=== PATIENT | female | born 1940 | race Caucasian/White ===

== ENCOUNTER 2020-11-19 18:59 | Inpatient (IN) | payer MEDICARE ==
[~2020-11-19] VITALS: Ht 162.6 cm; Wt 116.2 kg
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
[2020-11-19] MEDS ORDERED: PROMETHAZINE 25 MG/ML, 1ML ONE (19:14)
[2020-11-19] MEDS ORDERED: METO50TA82 PO (19:25)
[2020-11-19] MEDS ORDERED: ASPI-963 PO (19:25)
[2020-11-19] MEDS ORDERED: INSULIN (19:25)
[2020-11-19] MEDS ORDERED: CYAN2500 PO (19:25)
[2020-11-19] MEDS ORDERED: FURO20TA3 PO (19:25)
[2020-11-19] MEDS ORDERED: LEVO25TA2 PO (19:25)
[2020-11-19] MEDS ORDERED: OMEP-110 PO (19:25)
[2020-11-19] MEDS ORDERED: ERGO500017 PO (19:25)
[2020-11-19] MEDS ORDERED: ATOR20TA37 PO (19:25)
[2020-11-19] MEDS ORDERED: FERR324T5 PO (19:25)
[2020-11-19] MEDS ORDERED: IRBE75TA6 PO (19:25)
[2020-11-19] MEDS ORDERED: ASPIRIN 81 MG TABLET CHEW ONE (19:26)
[2020-11-19] MEDS ORDERED: ACETAMINOPHEN 500 MG TABLET ONE (19:26)
[2020-11-19] MEDS ORDERED: SODIUM CHLORIDE FLUSH 10ML SYR IVF ONE (19:30)
[2020-11-19] MEDS ORDERED: SODIUM CHLORIDE 0.9% 1,000ML IVBOLUS ONE (19:30)
[2020-11-19] MEDS ORDERED: ACETAMINOPHEN 500 MG TABLET PO ONE (19:30)
[2020-11-19] MEDS ORDERED: ASPIRIN 81 MG TABLET CHEW PO ONE (19:30)
[2020-11-19 19:37] LABS: BASOPHILS % (AUTO) 1 % (0-1); EOSINOPHILS % (AUTO) 4 % (1-7); LYMPHOCYTES % (AUTO) 17 % (22-44); MEAN CORPUSCULAR HEMOGLOBIN 32.4 pg (27.0-34.8); MEAN CORPUSCULAR HGB CONC 32.4 g/dL (32.4-35.8); MEAN PLATELET VOLUME 9.2 fL (7.4-10.4); MONOCYTES % (AUTO) 7 % (2-9); NEUTROPHILS % (AUTO) 72 % (42-75); PLATELET COUNT 163 x10^3/uL (130-400); RED BLOOD COUNT 2.74 x10^6/uL (3.82-5.3); RED CELL DISTRIBUTION WIDTH 14.5 % (9.6-15.2)
[2020-11-19 19:43] LABS: ALANINE AMINOTRANSFERASE 35 U/L (12-78); ALBUMIN 2.6 g/dL (3.4-5.0); ANION GAP 8 mmol/L (5-15); CALCIUM 8.1 mg/dL (8.5-10.1); CHLORIDE 113 mmol/L (98-107)
[2020-11-19 19:47] LABS: ALKALINE PHOSPHATASE 98 U/L (45-117); BILIRUBIN,TOTAL 0.3 mg/dL (0.2-1.0); TROPONIN I 0.021 ng/mL (0.000-0.045)
[2020-11-19] MEDS ORDERED: PROMETHAZINE 25 MG/ML, 1ML IM ONE (20:30)
[2020-11-19 20:51] LABS: FREE T4 (FREE THYROXINE) 1.03 ng/dL (0.76-1.46)
--- NOTE | 2020-11-19 21:10 | NUR ---
PT RETURNED FROM CT
--- NOTE | 2020-11-19 21:43 | NUR ---
Monitor check: Pt o2 sat 80% RA, airway opened o2 up to 3L NC; sats up to 95%. Informed primary RN; Precious.
[2020-11-19] MEDS: SODIUM CHLORIDE FLUSH 10ML SYR IVF SCH (23:30)
[2020-11-19] MEDS ORDERED: ONDANSETRON ODT 4 MG PO PRN (23:30)
[2020-11-19] MEDS ORDERED: BISACODYL 10 MG SUPP PR PRN (23:30)
[2020-11-19] MEDS ORDERED: METOPROLOL TARTRATE 50 MG TAB PO SCH (23:30)
--- NOTE | 2020-11-19 23:33 | NUR ---
Pt to be admitted to [facility], room 501. Report called to JOIE.
[2020-11-20 00:10] VITALS: BP 174/50
[2020-11-20] MEDS: ERGOCALCIFEROL 50,000 UNIT CAPSULE PO SCH (00:55)
[2020-11-20] MEDS: FERROUS SULFATE 325 MG TABLET PO SCH ×3 (00:55→20:48)
[2020-11-20] MEDS: ATORVASTATIN 20 MG TABLET PO SCH ×2 (00:55→20:48)
[2020-11-20] MEDS: INSULIN LISPRO 100 UNITS/ML, PEN SQ-INSULIN SCH ×5 (01:09→20:49)
[2020-11-20] MEDS: LEVOTHYROXINE 25 MCG TABLET PO SCH (05:06)
[2020-11-20] MEDS ORDERED: LABETALOL 5MG/ML, 20ML ONE (05:36)
[2020-11-20] MEDS ORDERED: ETOMIDATE 20 MG/10 ML ONE (05:49)
[2020-11-20] MEDS ORDERED: SUCCINYLCHOLINE 20 MG/ML, 10ML ONE (05:49)
[2020-11-20] MEDS ORDERED: CODE BLUE RESPONSE XX ONE (05:49)
[2020-11-20] MEDS ORDERED: PROPOFOL 100 ML IV ONE (05:49)
[2020-11-20] MEDS ORDERED: NOREPINEPHRINE 8 MG in SODIUM CHLORIDE 0.9% 242 ML IV PRN (06:00)
[2020-11-20 06:26] LABS: BASOPHILS % (AUTO) 1 % (0-1); EOSINOPHILS % (AUTO) 2 % (1-7); LYMPHOCYTES % (AUTO) 33 % (22-44); MEAN CORPUSCULAR HEMOGLOBIN 32.3 pg (27.0-34.8); MEAN CORPUSCULAR HGB CONC 31.9 g/dL (32.4-35.8); MEAN PLATELET VOLUME 9.4 fL (7.4-10.4); MONOCYTES % (AUTO) 7 % (2-9); NEUTROPHILS % (AUTO) 57 % (42-75); PLATELET COUNT 192 x10^3/uL (130-400)
[2020-11-20] MEDS ORDERED: PROPOFOL 100 ML IV PRN ×2 (06:30→08:00)
[2020-11-20 06:48] LABS: ANION GAP 11 mmol/L (5-15); CALCIUM 7.9 mg/dL (8.5-10.1); CHLORIDE 110 mmol/L (98-107)
[2020-11-20 06:53] LABS: CREATININE 4.07 mg/dL (0.55-1.02); TROPONIN I 0.072 ng/mL (0.000-0.045)
[2020-11-20] MEDS ORDERED: FUROSEMIDE 20 MG/2 ML IV SCH (07:30)
[2020-11-20] MEDS ORDERED: PHARMACY MAY ADJ FOR RENAL FX MC SCH (08:00)
[2020-11-20] MEDS ORDERED: LIDOCAINE-MPF 1%, 2ML ENDO PRN (08:00)
[2020-11-20] MEDS ORDERED: FENTANYL PF 100 MCG/2ML IVPush PRN (08:00)
[2020-11-20] MEDS: SODIUM CHLORIDE FLUSH 10ML SYR IVF SCH ×2 (09:00→20:49)
[2020-11-20] MEDS ORDERED: DIPHENOXYLATE/ATROPINE TABLET PO ONE (09:15)
[2020-11-20] MEDS: HEPARIN 5,000 UNITS/ML, 1ML SQ SCH ×2 (09:24→17:13)
[2020-11-20] MEDS: OMEPRAZOLE 20 MG CAPSULE.DR PO SCH (09:42)
[2020-11-20] MEDS: SENNA/DOCUSATE TABLET PO SCH (09:42)
[2020-11-20] MEDS: CYANOCOBALAMIN 1,000 MCG TABLET PO SCH (09:42)
[2020-11-20] MEDS: ASPIRIN 81 MG TABLET EC PO SCH (09:42)
[2020-11-20] MEDS ORDERED: ATROPINE SYRINGE 0.1 MG/ML, 10ML ONE (10:38)
[2020-11-20] MEDS ORDERED: SODIUM BICARB 8.4%, 50ML SYRINGE ONE (10:38)
[2020-11-20 12:27] LABS: TROPONIN I 0.564 ng/mL (0.000-0.045)
[2020-11-20] MEDS: FUROSEMIDE 20 MG/2 ML IV SCH (17:13)
[2020-11-20] MEDS: ACETAMINOPHEN 325 MG TABLET PO PRN (19:25)
[2020-11-20] MEDS: INSULIN GLARGINE 100 UNITS/ML, PEN SQ-INSULIN SCH (20:48)
[2020-11-21] MEDS: HEPARIN 5,000 UNITS/ML, 1ML SQ SCH ×3 (00:23→15:39)
[2020-11-21] MEDS: LEVOTHYROXINE 25 MCG TABLET PO SCH (05:41)
[2020-11-21 07:13] LABS: BASOPHILS % (AUTO) 1 % (0-1); EOSINOPHILS % (AUTO) 3 % (1-7); LYMPHOCYTES % (AUTO) 18 % (22-44); MEAN CORPUSCULAR HEMOGLOBIN 32.6 pg (27.0-34.8); MEAN CORPUSCULAR HGB CONC 32.7 g/dL (32.4-35.8); MEAN PLATELET VOLUME 9.1 fL (7.4-10.4); MONOCYTES % (AUTO) 8 % (2-9); NEUTROPHILS % (AUTO) 70 % (42-75); PLATELET COUNT 152 x10^3/uL (130-400); RED BLOOD COUNT 2.35 x10^6/uL (3.82-5.3); RED CELL DISTRIBUTION WIDTH 14.9 % (9.6-15.2)
[2020-11-21 07:25] LABS: ANION GAP 5 mmol/L (5-15); CHLORIDE 113 mmol/L (98-107)
[2020-11-21 07:29] LABS: TROPONIN I 0.448 ng/mL (0.000-0.045)
[2020-11-21] MEDS: ASPIRIN 81 MG TABLET EC PO SCH (08:39)
[2020-11-21] MEDS: SENNA/DOCUSATE TABLET PO SCH (08:39)
[2020-11-21] MEDS: FUROSEMIDE 20 MG/2 ML IV SCH (08:39)
[2020-11-21] MEDS: ACETAMINOPHEN 325 MG TABLET PO PRN (08:39)
[2020-11-21] MEDS: FERROUS SULFATE 325 MG TABLET PO SCH ×2 (08:40→21:22)
[2020-11-21] MEDS: OMEPRAZOLE 20 MG CAPSULE.DR PO SCH (08:40)
[2020-11-21] MEDS: SODIUM CHLORIDE FLUSH 10ML SYR IVF SCH ×2 (08:41→21:23)
[2020-11-21] MEDS: INSULIN GLARGINE 100 UNITS/ML, PEN SQ-INSULIN SCH ×2 (08:41→21:22)
[2020-11-21] MEDS: INSULIN LISPRO 100 UNITS/ML, PEN SQ-INSULIN SCH ×4 (08:41→21:22)
[2020-11-21] MEDS: CYANOCOBALAMIN 1,000 MCG TABLET PO SCH (08:43)
[2020-11-21] MEDS: LIDODERM 5% PATCH TD SCH (10:24)
[2020-11-21] MEDS: ISOSORBIDE DINITRATE 10 MG TABLET PO SCH ×3 (10:24→21:22)
[2020-11-21] MEDS: OXYcodone IR 5MG TABLET PO PRN ×2 (13:42→21:34)
[2020-11-21 16:30] VITALS: BP 128/61
[2020-11-21 21:06] VITALS: BP 173/62
[2020-11-21] MEDS: ATORVASTATIN 20 MG TABLET PO SCH (21:22)
[2020-11-21] MEDS: LIDODERM REMOVE PATCH NOTE XX SCH (22:20)
[2020-11-22 00:13] VITALS: BP 148/63
[2020-11-22] MEDS: HEPARIN 5,000 UNITS/ML, 1ML SQ SCH ×3 (00:13→16:48)
[2020-11-22] MEDS: OXYcodone IR 5MG TABLET PO PRN ×4 (02:08→21:32)
[2020-11-22] MEDS: LEVOTHYROXINE 25 MCG TABLET PO SCH (05:49)
[2020-11-22 06:03] LABS: BASOPHILS % (AUTO) 1 % (0-1); EOSINOPHILS % (AUTO) 5 % (1-7); LYMPHOCYTES % (AUTO) 15 % (22-44); MEAN CORPUSCULAR HEMOGLOBIN 32.6 pg (27.0-34.8); MEAN CORPUSCULAR HGB CONC 32.9 g/dL (32.4-35.8); MONOCYTES % (AUTO) 8 % (2-9); NEUTROPHILS % (AUTO) 71 % (42-75); PLATELET COUNT 158 x10^3/uL (130-400); RED BLOOD COUNT 2.54 x10^6/uL (3.82-5.3); RED CELL DISTRIBUTION WIDTH 14.9 % (9.6-15.2)
[2020-11-22 06:07] LABS: ANION GAP 7 mmol/L (5-15); CALCIUM 8.2 mg/dL (8.5-10.1); CHLORIDE 111 mmol/L (98-107)
[2020-11-22 06:09] LABS: CREATININE 4.58 mg/dL (0.55-1.02)
[2020-11-22 06:35] VITALS: BP 158/61
[2020-11-22] MEDS: INSULIN GLARGINE 100 UNITS/ML, PEN SQ-INSULIN SCH ×2 (08:35→21:34)
[2020-11-22] MEDS: INSULIN LISPRO 100 UNITS/ML, PEN SQ-INSULIN SCH ×4 (08:35→21:33)
[2020-11-22] MEDS: OMEPRAZOLE 20 MG CAPSULE.DR PO SCH (08:36)
[2020-11-22] MEDS: SENNA/DOCUSATE TABLET PO SCH (08:36)
[2020-11-22] MEDS: CYANOCOBALAMIN 1,000 MCG TABLET PO SCH (08:36)
[2020-11-22] MEDS: ISOSORBIDE DINITRATE 10 MG TABLET PO SCH ×3 (08:36→21:33)
[2020-11-22] MEDS: ASPIRIN 81 MG TABLET EC PO SCH (08:37)
[2020-11-22] MEDS: SODIUM CHLORIDE FLUSH 10ML SYR IVF SCH ×2 (08:37→21:34)
[2020-11-22] MEDS: FERROUS SULFATE 325 MG TABLET PO SCH ×2 (08:37→21:32)
[2020-11-22] MEDS ORDERED: FUROSEMIDE 40 MG/4 ML IV SCH (09:00)
[2020-11-22] MEDS: LIDODERM 5% PATCH TD SCH (12:05)
[2020-11-22 13:32] VITALS: BP 149/65
[2020-11-22 20:53] VITALS: BP 120/67
[2020-11-22] MEDS ORDERED: ALBUTEROL SULFATE 2.5 MG/3 ML ONE (21:10)
[2020-11-22 21:21] VITALS: BP 143/64
[2020-11-22] MEDS: ATORVASTATIN 20 MG TABLET PO SCH (21:33)
[2020-11-22] MEDS: LIDODERM REMOVE PATCH NOTE XX SCH (21:34)
[2020-11-22] MEDS: ALBUTEROL SULFATE 2.5 MG/3 ML NPPB PRN (22:06)
[2020-11-23 01:00] VITALS: BP 119/62
[2020-11-23] MEDS: HEPARIN 5,000 UNITS/ML, 1ML SQ SCH (01:12)
[2020-11-23 05:12] LABS: ANION GAP 11 mmol/L (5-15); CALCIUM 7.8 mg/dL (8.5-10.1); CHLORIDE 108 mmol/L (98-107); CREATININE 4.88 mg/dL (0.55-1.02)
[2020-11-23] MEDS: LEVOTHYROXINE 25 MCG TABLET PO SCH (06:00)
[2020-11-23 06:05] LABS: ANION GAP 13 mmol/L (5-15); CALCIUM 11.8 mg/dL (8.5-10.1); CHLORIDE 110 mmol/L (98-107); CREATININE 5.19 mg/dL (0.55-1.02)
[2020-11-23 06:09] LABS: TROPONIN I 0.166 ng/mL (0.000-0.045)
[2020-11-23] MEDS ORDERED: SODIUM BICARBONATE 1 MEQ/ML, 50ML VIAL IVPush ONE (06:30)
[2020-11-23] MEDS ORDERED: SODIUM ZIRCONIUM CYCLOSILICATE 10 GM PO ONE (06:30)
[2020-11-23] MEDS ORDERED: INSULIN REGULAR 100 UNITS/ML, 3ML VIAL IVPush ONE (06:30)
[2020-11-23] MEDS ORDERED: AMIODARONE 150 MG in DEXTROSE 5% 100 ML IV ONE (06:30)
[2020-11-23] MEDS ORDERED: PROPOFOL 100 ML IV ONE (06:36)
[2020-11-23] MEDS ORDERED: FENTANYL PF 100 MCG/2ML ONE (06:52)
[2020-11-23] MEDS ORDERED: LIDOCAINE 1%, 20ML ONE (06:53)
[2020-11-23] MEDS ORDERED: BIVALIRUDIN 250 MG ONE (06:53)
[2020-11-23] MEDS ORDERED: MIDAZOLAM 1 MG/ML, 5ML ONE ×2 (06:53→07:42)
[2020-11-23] MEDS ORDERED: AMIODARONE 450 MG in DEXTROSE 5% 241 ML IV PRN (07:00)
[2020-11-23] MEDS ORDERED: VECURONIUM 10 MG ONE (07:04)
[2020-11-23] MEDS ORDERED: NOREPINEPHRINE 1 MG/ML, 4ML ONE ×2 (07:10)
[2020-11-23] MEDS ORDERED: NOREPINEPHRINE 8 MG in SODIUM CHLORIDE 0.9% 242 ML IV PRN ×2 (07:30→10:00)
[2020-11-23] MEDS ORDERED: DOPAMINE/D5W PMX 400 MG/250 ML ONE (07:42)
[2020-11-23] MEDS ORDERED: CALCIUM CHLORIDE 13.6 MEQ/10 ML ONE ×2 (07:42→11:40)
[2020-11-23] MEDS ORDERED: SUCCINYLCHOLINE 20 MG/ML, 10ML ONE (07:42)
[2020-11-23] MEDS ORDERED: AMIODARONE 50 MG/ML, 3ML ONE (07:42)
[2020-11-23] MEDS ORDERED: EPINEPHRINE SYRINGE 0.1 MG/ML, 10ML ONE ×2 (07:42→11:40)
[2020-11-23] MEDS ORDERED: SODIUM BICARB 8.4%, 50ML SYRINGE ONE ×2 (07:42→08:50)
[2020-11-23] MEDS ORDERED: INSULIN REGULAR 100 UNITS/ML, 3ML VIAL ONE (07:42)
[2020-11-23] MEDS ORDERED: ETOMIDATE 20 MG/10 ML ONE (07:42)
[2020-11-23] MEDS ORDERED: DOPAMINE/D5W PMX 250 ML ONE (08:20)
[2020-11-23] MEDS: FERROUS SULFATE 325 MG TABLET PO SCH ×2 (09:00→20:14)
[2020-11-23] MEDS: CYANOCOBALAMIN 1,000 MCG TABLET PO SCH (09:00)
[2020-11-23] MEDS: ASPIRIN 81 MG TABLET EC PO SCH (09:00)
[2020-11-23] MEDS: INSULIN GLARGINE 100 UNITS/ML, PEN SQ-INSULIN SCH ×2 (09:00→20:17)
[2020-11-23] MEDS: SENNA/DOCUSATE TABLET PO SCH (09:00)
[2020-11-23] MEDS: OMEPRAZOLE 20 MG CAPSULE.DR PO SCH (09:00)
[2020-11-23] MEDS: ISOSORBIDE DINITRATE 10 MG TABLET PO SCH (09:00)
[2020-11-23 09:54] LABS: BASOPHILS % (AUTO) 0 % (0-1); EOSINOPHILS % (AUTO) 0 % (1-7); LYMPHOCYTES % (AUTO) 3 % (22-44); MEAN CORPUSCULAR HEMOGLOBIN 31.7 pg (27.0-34.8); MEAN CORPUSCULAR HGB CONC 31.8 g/dL (32.4-35.8); MEAN PLATELET VOLUME 9.1 fL (7.4-10.4); MONOCYTES % (AUTO) 5 % (2-9); NEUTROPHILS % (AUTO) 92 % (42-75); PLATELET COUNT 218 x10^3/uL (130-400); RED CELL DISTRIBUTION WIDTH 14.6 % (9.6-15.2)
[2020-11-23] MEDS ORDERED: LIDOCAINE-MPF 1%, 2ML ENDO PRN (10:00)
[2020-11-23] MEDS ORDERED: DEXTROSE 50%, 50ML SYRINGE IVPush PRN (10:00)
[2020-11-23] MEDS ORDERED: FENTANYL PF 1,000 MCG in SODIUM CHLORIDE 0.9% 80 ML IV PRN (10:00)
[2020-11-23] MEDS: SODIUM CHLORIDE FLUSH 10ML SYR IVF SCH ×4 (10:00→20:08)
[2020-11-23] MEDS ORDERED: BISACODYL 10 MG SUPP PR PRN (10:00)
[2020-11-23] MEDS: LIDODERM 5% PATCH TD SCH (10:00)
[2020-11-23] MEDS ORDERED: GLUCAGON 1 MG IM PRN (10:00)
[2020-11-23] MEDS ORDERED: LACTULOSE 20 GM/30 ML UDC NG PRN (10:00)
[2020-11-23] MEDS ORDERED: PHARMACY MAY ADJ FOR RENAL FX MC SCH (10:00)
[2020-11-23] MEDS ORDERED: SENNA/DOCUSATE TABLET NG PRN (10:00)
[2020-11-23] MEDS ORDERED: SENNA 176 MG/5 ML ORAL SOL NG PRN (10:00)
[2020-11-23] MEDS ORDERED: DEXTROSE 4 GM TAB.CHEW PO PRN (10:00)
[2020-11-23 10:04] LABS: ALANINE AMINOTRANSFERASE 180 U/L (12-78); ALBUMIN 2.2 g/dL (3.4-5.0); ANION GAP 12 mmol/L (5-15); CALCIUM 9.4 mg/dL (8.5-10.1); CHLORIDE 106 mmol/L (98-107)
[2020-11-23] MEDS: INSULIN LISPRO 100 UNITS/ML, PEN SQ-INSULIN SCH ×3 (10:05→20:18)
[2020-11-23 10:06] LABS: ALKALINE PHOSPHATASE 148 U/L (45-117); BILIRUBIN,TOTAL 0.6 mg/dL (0.2-1.0)
[2020-11-23] MEDS: DOPAMINE/D5W PMX 250 ML IV PRN ×2 (10:21→20:07)
[2020-11-23] MEDS: PROPOFOL 100 ML IV PRN ×3 (10:57→20:06)
[2020-11-23] MEDS ORDERED: HEPARIN 25,000 UNITS/250ML PMX 250 ML IV PRN (11:00)
[2020-11-23] MEDS ORDERED: HEPARIN 5,000 UNITS/ML, 1ML IV ONE (11:00)
[2020-11-23] MEDS ORDERED: HEPARIN 5,000 UNITS/ML, 1ML IV PRN (11:00)
[2020-11-23] MEDS: MEROPENEM 500 MG in SODIUM CHLORIDE 0.9% 100 ML IV SCH (13:01)
[2020-11-23] MEDS: AMIODARONE 450 MG in DEXTROSE 5% 241 ML IV PRN ×2 (13:05→20:11)
[2020-11-23] MEDS: PANTOPRAZOLE 40 MG IV IVPush SCH (13:11)
[2020-11-23] MEDS: FILTER 0.22 MICRON IV PRN ×2 (13:41→20:11)
[2020-11-23 14:35] LABS: MICROSCOPIC INDICATED
[2020-11-23] MEDS: IPRATROPIUM 0.5 MG/2.5 ML INHA HHN SCH ×2 (15:30→19:03)
[2020-11-23] MEDS ORDERED: ALBUMIN HUMAN 25% 300 ML ONE (16:24)
[2020-11-23] MEDS: ALBUMIN HUMAN 25% 100 ML IV PRN ×3 (17:03→17:46)
[2020-11-23] MEDS: ATORVASTATIN 20 MG TABLET PO SCH (20:14)
[2020-11-23] MEDS: LIDODERM REMOVE PATCH NOTE XX SCH (22:00)
[2020-11-24] MEDS: MEROPENEM 500 MG in SODIUM CHLORIDE 0.9% 100 ML IV SCH ×2 (00:27→12:42)
[2020-11-24] MEDS: PROPOFOL 100 ML IV PRN ×5 (02:04→19:41)
[2020-11-24] MEDS: IPRATROPIUM 0.5 MG/2.5 ML INHA HHN SCH ×4 (02:30→21:00)
[2020-11-24] MEDS: INSULIN LISPRO 100 UNITS/ML, PEN SQ-INSULIN SCH ×4 (03:14→19:44)
[2020-11-24] MEDS: AMIODARONE 450 MG in DEXTROSE 5% 241 ML IV PRN ×3 (03:16→19:47)
[2020-11-24 04:17] LABS: BASOPHILS % (AUTO) 1 % (0-1); EOSINOPHILS % (AUTO) 4 % (1-7); LYMPHOCYTES % (AUTO) 16 % (22-44); MEAN CORPUSCULAR HGB CONC 34.1 g/dL (32.4-35.8); MEAN PLATELET VOLUME 9.1 fL (7.4-10.4); MONOCYTES % (AUTO) 7 % (2-9); NEUTROPHILS % (AUTO) 73 % (42-75); PLATELET COUNT 157 x10^3/uL (130-400); RED BLOOD COUNT 2.28 x10^6/uL (3.82-5.3); RED CELL DISTRIBUTION WIDTH 14.7 % (9.6-15.2)
[2020-11-24 04:24] LABS: CALCIUM 8.4 mg/dL (8.5-10.1)
[2020-11-24 04:29] LABS: ANION GAP 10 mmol/L (5-15); CALCIUM 8.3 mg/dL (8.5-10.1); CHLORIDE 102 mmol/L (98-107); CREATININE 3.43 mg/dL (0.55-1.02)
[2020-11-24] MEDS: LEVOTHYROXINE 25 MCG TABLET PO SCH (04:59)
[2020-11-24] MEDS: ALBUTEROL SULFATE 2.5 MG/3 ML NPPB PRN (06:44)
[2020-11-24] MEDS: ASPIRIN 81 MG TABLET EC PO SCH (08:11)
[2020-11-24] MEDS: HEPARIN 5,000 UNITS/ML, 1ML SQ SCH ×2 (08:11→15:27)
[2020-11-24] MEDS: SENNA/DOCUSATE TABLET PO SCH (08:11)
[2020-11-24] MEDS: FERROUS SULFATE 325 MG TABLET PO SCH ×2 (08:11→19:40)
[2020-11-24] MEDS: CYANOCOBALAMIN 1,000 MCG TABLET PO SCH (08:11)
[2020-11-24] MEDS: LIDODERM 5% PATCH TD SCH (08:12)
[2020-11-24] MEDS: PANTOPRAZOLE 40 MG IV IVPush SCH (08:12)
[2020-11-24] MEDS: SODIUM CHLORIDE FLUSH 10ML SYR IVF SCH ×3 (08:13→19:38)
[2020-11-24 08:20] VITALS: BP 129/52
[2020-11-24 08:36] VITALS: BP 156/63
[2020-11-24] MEDS: INSULIN GLARGINE 100 UNITS/ML, PEN SQ-INSULIN SCH ×2 (08:44→19:51)
[2020-11-24 08:54] VITALS: BP 136/54
[2020-11-24 09:00] VITALS: BP 144/63
[2020-11-24 09:40] VITALS: BP 140/53
[2020-11-24 10:41] VITALS: BP 123/51
[2020-11-24] MEDS ORDERED: DARBEPOETIN 60 MCG/ML SQ SCH (12:00)
--- NOTE | 2020-11-24 14:16 | NUR ---
TUBE FEEDS:Vital HP: GOAL: on propofol: 45 m/hr, off propofol: 55 ml/hr Addendum: 11/24/20 at [address] Amended: Links added.
[2020-11-24] MEDS: DOPAMINE/D5W PMX 250 ML IV PRN (15:28)
[2020-11-24] MEDS: ATORVASTATIN 20 MG TABLET PO SCH (19:40)
[2020-11-24] MEDS: LIDODERM REMOVE PATCH NOTE XX SCH (22:00)
[2020-11-25] MEDS: PROPOFOL 100 ML IV PRN ×3 (00:14→11:54)
[2020-11-25] MEDS: HEPARIN 5,000 UNITS/ML, 1ML SQ SCH ×3 (01:05→17:27)
[2020-11-25] MEDS: MEROPENEM 500 MG in SODIUM CHLORIDE 0.9% 100 ML IV SCH (01:06)
[2020-11-25] MEDS: AMIODARONE 450 MG in DEXTROSE 5% 241 ML IV PRN ×2 (02:15→14:13)
[2020-11-25] MEDS: FILTER 0.22 MICRON IV PRN (02:15)
[2020-11-25] MEDS: IPRATROPIUM 0.5 MG/2.5 ML INHA HHN SCH ×4 (02:20→20:44)
[2020-11-25] MEDS: INSULIN LISPRO 100 UNITS/ML, PEN SQ-INSULIN SCH ×3 (03:21→15:24)
[2020-11-25 04:10] LABS: BASOPHILS % (AUTO) 1 % (0-1); EOSINOPHILS % (AUTO) 4 % (1-7); LYMPHOCYTES % (AUTO) 13 % (22-44); MEAN CORPUSCULAR HEMOGLOBIN 31.7 pg (27.0-34.8); MEAN PLATELET VOLUME 9.2 fL (7.4-10.4); MONOCYTES % (AUTO) 8 % (2-9); NEUTROPHILS % (AUTO) 75 % (42-75); PLATELET COUNT 183 x10^3/uL (130-400); RED BLOOD COUNT 2.89 x10^6/uL (3.82-5.3)
[2020-11-25] MEDS: LEVOTHYROXINE 25 MCG TABLET PO SCH (04:18)
[2020-11-25 04:19] LABS: ANION GAP 8 mmol/L (5-15); CALCIUM 7.6 mg/dL (8.5-10.1); CHLORIDE 99 mmol/L (98-107); CREATININE 3.06 mg/dL (0.55-1.02)
[2020-11-25] MEDS: SENNA/DOCUSATE TABLET PO SCH (08:59)
[2020-11-25] MEDS: PANTOPRAZOLE 40 MG IV IVPush SCH (08:59)
[2020-11-25] MEDS: IRON SUCROSE COMPLEX 100MG/5ML IV SCH (08:59)
[2020-11-25] MEDS: FERROUS SULFATE 325 MG TABLET PO SCH (09:00)
[2020-11-25] MEDS: CYANOCOBALAMIN 1,000 MCG TABLET PO SCH (09:00)
[2020-11-25] MEDS ORDERED: EPOETIN 40,000 UNITS/ML IVPush SCH (09:00)
[2020-11-25] MEDS: ASPIRIN 81 MG TABLET EC PO SCH (09:00)
[2020-11-25] MEDS: SODIUM CHLORIDE FLUSH 10ML SYR IVF SCH (09:01)
[2020-11-25] MEDS: LIDODERM 5% PATCH TD SCH (09:01)
[2020-11-25] MEDS: INSULIN GLARGINE 100 UNITS/ML, PEN SQ-INSULIN SCH (09:14)
[2020-11-25] MEDS: CEFTRIAXONE 1,000 MG in DEXTROSE 5% 50 ML IVPB SCH (10:20)
[2020-11-25] MEDS: DOPAMINE/D5W PMX 250 ML IV PRN (14:13)
[2020-11-25] MEDS: LIDODERM REMOVE PATCH NOTE XX SCH (22:00)
[2020-11-26] MEDS: FERROUS SULFATE 325 MG TABLET PO SCH ×3 (00:21→21:26)
[2020-11-26] MEDS: ATORVASTATIN 20 MG TABLET PO SCH ×2 (00:21→21:25)
[2020-11-26] MEDS: HEPARIN 5,000 UNITS/ML, 1ML SQ SCH ×4 (00:22→23:19)
[2020-11-26] MEDS: SODIUM CHLORIDE FLUSH 10ML SYR IVF SCH ×3 (00:22→21:29)
[2020-11-26] MEDS: INSULIN GLARGINE 100 UNITS/ML, PEN SQ-INSULIN SCH ×3 (00:25→21:27)
[2020-11-26] MEDS: INSULIN LISPRO 100 UNITS/ML, PEN SQ-INSULIN SCH ×5 (00:26→21:26)
[2020-11-26] MEDS: PROPOFOL 100 ML IV PRN ×3 (00:28→17:21)
[2020-11-26] MEDS: IPRATROPIUM 0.5 MG/2.5 ML INHA HHN SCH ×4 (02:15→22:00)
[2020-11-26 03:28] LABS: MEAN CORPUSCULAR HGB CONC 33.4 g/dL (32.4-35.8); PLATELET COUNT 191 x10^3/uL (130-400); RED BLOOD COUNT 3.03 x10^6/uL (3.82-5.3); RED CELL DISTRIBUTION WIDTH 14.6 % (9.6-15.2)
[2020-11-26 03:34] LABS: ANION GAP 9 mmol/L (5-15); CALCIUM 7.5 mg/dL (8.5-10.1); CHLORIDE 98 mmol/L (98-107); CREATININE 2.68 mg/dL (0.55-1.02); TRIGLYCERIDES 106 mg/dL (50-200)
[2020-11-26] MEDS: FILTER 0.22 MICRON IV PRN ×2 (03:55→20:26)
[2020-11-26] MEDS: AMIODARONE 450 MG in DEXTROSE 5% 241 ML IV PRN ×2 (03:55→20:26)
[2020-11-26 04:02] LABS: ANISOCYTOSIS 1+; BAND#(MANUAL) 0.28 x10^3/uL; BANDS%(MANUAL) 2 % (0-7); EOS#(MANUAL) 0.98 x10^3/uL (0.0-0.4); EOS% (MANUAL) 7 % (1-7); LYMPH#(MANUAL) 0.98 x10^3/uL (1-3.4); LYMPHS% (MANUAL) 7 % (22-44); METAMYELOCYTES# (MANUAL) 0.14 x10^3/uL (0-0); METAMYELOCYTES% (MANUAL) 1 % (0-1); MONOS#(MANUAL) 0.56 x10^3/uL (0.3-2.7); MONOS% (MANUAL) 4 % (2-9); MYELOCYTES# (MANUAL) 0.14 x10^3/uL (0-0); MYELOCYTES% (MANUAL) 1 % (0-0); POLYCHROMASIA 1+; SEG#(MANUAL) 10.92 x10^3/uL (1.8-6.8); SEGS% (MANUAL) 78 % (42-75)
[2020-11-26 04:03] LABS: <PLATELET ESTIMATE> ADEQUATE; LARGE PLATELETS 1+
[2020-11-26] MEDS: LEVOTHYROXINE 25 MCG TABLET PO SCH (05:08)
[2020-11-26] MEDS: DOPAMINE/D5W PMX 250 ML IV PRN (05:09)
[2020-11-26] MEDS ORDERED: MAGNESIUM SULFATE PMX 2GM/50ML 50 ML IV ONE (07:00)
[2020-11-26] MEDS: ALBUMIN HUMAN 25% 100 ML IV PRN ×4 (08:55→11:10)
[2020-11-26] MEDS: SENNA/DOCUSATE TABLET PO SCH (09:29)
[2020-11-26] MEDS: LIDODERM 5% PATCH TD SCH (09:29)
[2020-11-26] MEDS: ASPIRIN 81 MG TABLET EC PO SCH (09:29)
[2020-11-26] MEDS: PANTOPRAZOLE 40 MG IV IVPush SCH (09:29)
[2020-11-26] MEDS: CYANOCOBALAMIN 1,000 MCG TABLET PO SCH (09:30)
[2020-11-26] MEDS: CEFTRIAXONE 1,000 MG in DEXTROSE 5% 50 ML IVPB SCH (11:49)
[2020-11-26] MEDS: LIDODERM REMOVE PATCH NOTE XX SCH (21:29)
[2020-11-26] MEDS: ERGOCALCIFEROL 50,000 UNIT CAPSULE PO SCH (23:19)
[2020-11-27] MEDS: PROPOFOL 100 ML IV PRN ×3 (00:19→17:42)
[2020-11-27] MEDS: DOPAMINE/D5W PMX 250 ML IV PRN (00:51)
[2020-11-27] MEDS: IPRATROPIUM 0.5 MG/2.5 ML INHA HHN SCH ×4 (02:15→21:30)
[2020-11-27 03:18] LABS: BASOPHILS % (AUTO) 0 % (0-1); EOSINOPHILS % (AUTO) 5 % (1-7); LYMPHOCYTES % (AUTO) 9 % (22-44); MEAN CORPUSCULAR HEMOGLOBIN 32.4 pg (27.0-34.8); MEAN CORPUSCULAR HGB CONC 33.5 g/dL (32.4-35.8); MEAN PLATELET VOLUME 8.6 fL (7.4-10.4); MONOCYTES % (AUTO) 9 % (2-9); NEUTROPHILS % (AUTO) 77 % (42-75); PLATELET COUNT 172 x10^3/uL (130-400); RED BLOOD COUNT 2.54 x10^6/uL (3.82-5.3); RED CELL DISTRIBUTION WIDTH 14.6 % (9.6-15.2)
[2020-11-27 03:31] LABS: ANION GAP 8 mmol/L (5-15); CHLORIDE 95 mmol/L (98-107)
[2020-11-27 03:32] LABS: CREATININE 2.77 mg/dL (0.55-1.02)
[2020-11-27] MEDS: INSULIN LISPRO 100 UNITS/ML, PEN SQ-INSULIN SCH ×4 (03:44→21:13)
[2020-11-27] MEDS: LEVOTHYROXINE 25 MCG TABLET PO SCH (04:58)
[2020-11-27] MEDS ORDERED: [UNRECOGNIZED DRUG - REMARK] MC PRN (07:30)
[2020-11-27] MEDS: HEPARIN 5,000 UNITS/ML, 1ML SQ SCH ×2 (07:51→15:33)
[2020-11-27] MEDS: SODIUM CHLORIDE FLUSH 10ML SYR IVF SCH ×2 (07:52→21:14)
[2020-11-27] MEDS: SENNA/DOCUSATE TABLET PO SCH (07:52)
[2020-11-27] MEDS: FERROUS SULFATE 325 MG TABLET PO SCH ×2 (07:52→21:14)
[2020-11-27] MEDS: CYANOCOBALAMIN 1,000 MCG TABLET PO SCH (07:52)
[2020-11-27] MEDS: ASPIRIN 81 MG TABLET EC PO SCH (07:53)
[2020-11-27] MEDS: PANTOPRAZOLE 40 MG IV IVPush SCH (07:53)
[2020-11-27] MEDS ORDERED: DOPAMINE IV PRN (08:00)
[2020-11-27] MEDS ORDERED: SODIUM CHLORIDE 0.9% IV PRN (08:00)
[2020-11-27] MEDS: AMIODARONE 450 MG in DEXTROSE 5% 241 ML IV PRN (08:00)
[2020-11-27] MEDS: INSULIN GLARGINE 100 UNITS/ML, PEN SQ-INSULIN SCH ×2 (08:04→21:13)
[2020-11-27] MEDS: LIDODERM 5% PATCH TD SCH (10:16)
[2020-11-27] MEDS: AMIODARONE 200 MG TABLET PO SCH ×2 (10:16→21:13)
[2020-11-27] MEDS: CEFTRIAXONE 1,000 MG in SODIUM CHLORIDE 0.9% 50 ML IVPB SCH (11:33)
[2020-11-27] MEDS: ALBUTEROL SULFATE 2.5 MG/3 ML NPPB PRN (18:53)
[2020-11-27] MEDS: OXYcodone IR 5MG TABLET PO PRN (19:18)
[2020-11-27] MEDS: POLYETHYLENE GLYCOL 17 GM PACKET PO PRN (21:13)
[2020-11-27] MEDS: ATORVASTATIN 20 MG TABLET PO SCH (21:14)
[2020-11-27] MEDS: DOPAMINE 400 MG in SODIUM CHLORIDE 0.9% 240 ML IV PRN (21:14)
[2020-11-27] MEDS: LIDODERM REMOVE PATCH NOTE XX SCH (22:00)
[2020-11-28] MEDS: HEPARIN 5,000 UNITS/ML, 1ML SQ SCH ×3 (00:22→15:46)
[2020-11-28] MEDS: IPRATROPIUM 0.5 MG/2.5 ML INHA HHN SCH ×4 (02:49→18:59)
[2020-11-28 03:26] LABS: MEAN CORPUSCULAR HEMOGLOBIN 32.3 pg (27.0-34.8); MEAN CORPUSCULAR HGB CONC 33.2 g/dL (32.4-35.8); MEAN PLATELET VOLUME 8.7 fL (7.4-10.4); PLATELET COUNT 214 x10^3/uL (130-400); RED CELL DISTRIBUTION WIDTH 14.8 % (9.6-15.2)
[2020-11-28 03:36] LABS: ANION GAP 9 mmol/L (5-15); CALCIUM 7.7 mg/dL (8.5-10.1); CHLORIDE 95 mmol/L (98-107)
[2020-11-28 03:37] LABS: CREATININE 2.99 mg/dL (0.55-1.02)
[2020-11-28] MEDS: INSULIN LISPRO 100 UNITS/ML, PEN SQ-INSULIN SCH ×4 (03:43→21:40)
[2020-11-28 04:20] LABS: ANISOCYTOSIS 1+; BAND#(MANUAL) 0.11 x10^3/uL; BANDS%(MANUAL) 1 % (0-7); EOS#(MANUAL) 0.44 x10^3/uL (0.0-0.4); EOS% (MANUAL) 4 % (1-7); LYMPH#(MANUAL) 0.99 x10^3/uL (1-3.4); LYMPHS% (MANUAL) 9 % (22-44); METAMYELOCYTES# (MANUAL) 0.11 x10^3/uL (0-0); METAMYELOCYTES% (MANUAL) 1 % (0-1); MONOS#(MANUAL) 0.44 x10^3/uL (0.3-2.7); MONOS% (MANUAL) 4 % (2-9); POLYCHROMASIA 1+; SEG#(MANUAL) 8.91 x10^3/uL (1.8-6.8); SEGS% (MANUAL) 81 % (42-75)
[2020-11-28 04:21] LABS: <PLATELET ESTIMATE> ADEQUATE; LARGE PLATELETS 1+
[2020-11-28] MEDS: LEVOTHYROXINE 25 MCG TABLET PO SCH (05:48)
[2020-11-28] MEDS: PROPOFOL 100 ML IV PRN (06:22)
[2020-11-28] MEDS: CYANOCOBALAMIN 1,000 MCG TABLET PO SCH (07:35)
[2020-11-28] MEDS: ASPIRIN 81 MG TABLET EC PO SCH (07:36)
[2020-11-28] MEDS: AMIODARONE 200 MG TABLET PO SCH ×2 (07:36→21:35)
[2020-11-28] MEDS: FERROUS SULFATE 325 MG TABLET PO SCH (07:36)
[2020-11-28] MEDS: MIDODRINE 5 MG TABLET PO SCH ×3 (07:36→21:35)
[2020-11-28] MEDS: SENNA/DOCUSATE TABLET PO SCH (07:36)
[2020-11-28] MEDS: IRON SUCROSE COMPLEX 100MG/5ML IV SCH (07:37)
[2020-11-28] MEDS: SODIUM CHLORIDE FLUSH 10ML SYR IVF SCH (07:37)
[2020-11-28] MEDS: PANTOPRAZOLE 40 MG IV IVPush SCH (07:38)
[2020-11-28] MEDS: INSULIN GLARGINE 100 UNITS/ML, PEN SQ-INSULIN SCH ×2 (07:45→21:41)
[2020-11-28] MEDS: LIDODERM 5% PATCH TD SCH (09:49)
[2020-11-28] MEDS: CEFTRIAXONE 1,000 MG in SODIUM CHLORIDE 0.9% 50 ML IVPB SCH (10:57)
[2020-11-28] MEDS ORDERED: IRON SUCROSE COMPLEX 100MG/5ML IV SCH (11:00)
[2020-11-28] MEDS: CALCITRIOL 0.25 MCG CAPSULE PO SCH (11:39)
[2020-11-28] MEDS: DARBEPOETIN 100 MCG/ML SQ SCH (11:40)
[2020-11-28] MEDS: DOPAMINE 400 MG in SODIUM CHLORIDE 0.9% 240 ML IV PRN (16:42)
[2020-11-28] MEDS: POLYETHYLENE GLYCOL 17 GM PACKET PO PRN (17:08)
[2020-11-28] MEDS: OXYcodone IR 5MG TABLET PO PRN (17:08)
[2020-11-28] MEDS: ATORVASTATIN 20 MG TABLET PO SCH (21:34)
[2020-11-28] MEDS: LIDODERM REMOVE PATCH NOTE XX SCH (22:00)
[2020-11-29] MEDS: HEPARIN 5,000 UNITS/ML, 1ML SQ SCH ×3 (01:45→15:25)
[2020-11-29] MEDS: IPRATROPIUM 0.5 MG/2.5 ML INHA HHN SCH (02:18)
[2020-11-29] MEDS: INSULIN LISPRO 100 UNITS/ML, PEN SQ-INSULIN SCH ×4 (02:54→23:04)
[2020-11-29 02:58] LABS: MEAN CORPUSCULAR HEMOGLOBIN 31.8 pg (27.0-34.8); MEAN CORPUSCULAR HGB CONC 32.8 g/dL (32.4-35.8); PLATELET COUNT 199 x10^3/uL (130-400); RED CELL DISTRIBUTION WIDTH 14.7 % (9.6-15.2)
[2020-11-29 03:05] LABS: ALANINE AMINOTRANSFERASE 79 U/L (12-78); ALBUMIN 2.6 g/dL (3.4-5.0); ANION GAP 9 mmol/L (5-15); CHLORIDE 96 mmol/L (98-107); CREATININE 2.98 mg/dL (0.55-1.02)
[2020-11-29 03:08] LABS: ALKALINE PHOSPHATASE 86 U/L (45-117); BILIRUBIN,TOTAL 0.5 mg/dL (0.2-1.0); TOTAL PROTEIN 5.8 g/dL (6.4-8.2); TRIGLYCERIDES 114 mg/dL (50-200)
[2020-11-29] MEDS: PROPOFOL 100 ML IV PRN ×4 (03:31→17:56)
[2020-11-29] MEDS: SODIUM CHLORIDE FLUSH 10ML SYR IVF SCH ×3 (03:32→21:19)
[2020-11-29 03:41] LABS: BAND#(MANUAL) 1.34 x10^3/uL; BANDS%(MANUAL) 12 % (0-7); EOS% (MANUAL) 8 % (1-7); LYMPH#(MANUAL) 1.23 x10^3/uL (1-3.4); LYMPHS% (MANUAL) 11 % (22-44); METAMYELOCYTES# (MANUAL) 0.11 x10^3/uL (0-0); METAMYELOCYTES% (MANUAL) 1 % (0-1); MONOS% (MANUAL) 8 % (2-9); MYELOCYTES# (MANUAL) 0.22 x10^3/uL (0-0); MYELOCYTES% (MANUAL) 2 % (0-0); SEGS% (MANUAL) 58 % (42-75)
[2020-11-29 03:42] LABS: ANISOCYTOSIS 1+; POLYCHROMASIA 1+
[2020-11-29 03:43] LABS: <PLATELET ESTIMATE> ADEQUATE; LARGE PLATELETS 1+; OVALOCYTES 1+
[2020-11-29 03:44] LABS: PMNS WITH VACUOLES 1+
[2020-11-29] MEDS: LEVOTHYROXINE 25 MCG TABLET PO SCH (06:58)
[2020-11-29] MEDS: ACETAMINOPHEN 325 MG TABLET PO PRN (06:58)
[2020-11-29] MEDS: AMIODARONE 200 MG TABLET PO SCH ×2 (08:46→21:18)
[2020-11-29] MEDS: SENNA/DOCUSATE TABLET PO SCH (08:46)
[2020-11-29] MEDS: CYANOCOBALAMIN 1,000 MCG TABLET PO SCH (08:46)
[2020-11-29] MEDS: CALCITRIOL 0.25 MCG CAPSULE PO SCH (08:47)
[2020-11-29] MEDS: MIDODRINE 5 MG TABLET PO SCH ×3 (08:47→21:18)
[2020-11-29] MEDS: ASPIRIN 81 MG TABLET EC PO SCH (08:48)
[2020-11-29] MEDS: PANTOPRAZOLE 40 MG IV IVPush SCH (08:48)
[2020-11-29] MEDS: IRON SUCROSE COMPLEX 100MG/5ML IV SCH (08:48)
[2020-11-29] MEDS: LIDODERM 5% PATCH TD SCH (08:49)
[2020-11-29] MEDS: INSULIN GLARGINE 100 UNITS/ML, PEN SQ-INSULIN SCH ×2 (09:04→23:04)
[2020-11-29] MEDS ORDERED: IPRATROPIUM 0.5 MG/2.5 ML INHA HHN PRN ×2 (10:30)
[2020-11-29] MEDS: DOPAMINE 400 MG in SODIUM CHLORIDE 0.9% 240 ML IV PRN (10:56)
[2020-11-29] MEDS: CEFTRIAXONE 1,000 MG in SODIUM CHLORIDE 0.9% 50 ML IVPB SCH (11:21)
[2020-11-29] MEDS ORDERED: DOPAMINE 400 MG in SODIUM CHLORIDE 0.9% 240 ML IV PRN (18:54)
[2020-11-29] MEDS: ATORVASTATIN 20 MG TABLET PO SCH (21:18)
[2020-11-29] MEDS: LIDODERM REMOVE PATCH NOTE XX SCH (23:07)
[2020-11-30] MEDS: INSULIN LISPRO 100 UNITS/ML, PEN SQ-INSULIN SCH ×4 (03:00→21:03)
[2020-11-30] MEDS: HEPARIN 5,000 UNITS/ML, 1ML SQ SCH ×4 (04:18→15:20)
[2020-11-30 04:24] LABS: BASOPHILS % (AUTO) 1 % (0-1); EOSINOPHILS % (AUTO) 8 % (1-7); LYMPHOCYTES % (AUTO) 14 % (22-44); MEAN CORPUSCULAR HEMOGLOBIN 32.6 pg (27.0-34.8); MEAN CORPUSCULAR HGB CONC 33.1 g/dL (32.4-35.8); MEAN PLATELET VOLUME 7.7 fL (7.4-10.4); MONOCYTES % (AUTO) 10 % (2-9); NEUTROPHILS % (AUTO) 67 % (42-75); PLATELET COUNT 204 x10^3/uL (130-400); RED BLOOD COUNT 2.42 x10^6/uL (3.82-5.3); RED CELL DISTRIBUTION WIDTH 14.7 % (9.6-15.2)
[2020-11-30 04:33] LABS: ALBUMIN 2.4 g/dL (3.4-5.0); ANION GAP 8 mmol/L (5-15); CALCIUM 8.1 mg/dL (8.5-10.1); CHLORIDE 98 mmol/L (98-107); CREATININE 3.04 mg/dL (0.55-1.02)
[2020-11-30] MEDS: POLYETHYLENE GLYCOL 17 GM PACKET PO PRN (05:34)
[2020-11-30] MEDS: ACETAMINOPHEN 325 MG TABLET PO PRN (05:34)
[2020-11-30] MEDS: LEVOTHYROXINE 25 MCG TABLET PO SCH (05:34)
[2020-11-30] MEDS: PROPOFOL 100 ML IV PRN ×2 (06:58→21:04)
[2020-11-30] MEDS: CALCITRIOL 0.25 MCG CAPSULE PO SCH (08:39)
[2020-11-30] MEDS: MIDODRINE 5 MG TABLET PO SCH ×3 (08:39→21:03)
[2020-11-30] MEDS: ASPIRIN 81 MG TABLET EC PO SCH (08:40)
[2020-11-30] MEDS: SENNA/DOCUSATE TABLET PO SCH (08:40)
[2020-11-30] MEDS: AMIODARONE 200 MG TABLET PO SCH ×2 (08:40→21:03)
[2020-11-30] MEDS: CYANOCOBALAMIN 1,000 MCG TABLET PO SCH (08:43)
[2020-11-30] MEDS: PANTOPRAZOLE 40 MG IV IVPush SCH (08:44)
[2020-11-30] MEDS: SODIUM CHLORIDE FLUSH 10ML SYR IVF SCH ×2 (08:44→21:02)
[2020-11-30] MEDS: INSULIN GLARGINE 100 UNITS/ML, PEN SQ-INSULIN SCH ×2 (08:46→21:04)
[2020-11-30] MEDS: IRON SUCROSE COMPLEX 100MG/5ML IV SCH (10:02)
[2020-11-30] MEDS: LIDODERM 5% PATCH TD SCH (10:06)
[2020-11-30] MEDS: CEFTRIAXONE 1,000 MG in SODIUM CHLORIDE 0.9% 50 ML IVPB SCH (11:25)
[2020-11-30] MEDS: OXYcodone IR 5MG TABLET PO PRN ×3 (14:15→23:53)
[2020-11-30] MEDS: ATORVASTATIN 20 MG TABLET PO SCH (21:02)
[2020-11-30] MEDS: LIDODERM REMOVE PATCH NOTE XX SCH (21:04)
[2020-12-01] MEDS: INSULIN LISPRO 100 UNITS/ML, PEN SQ-INSULIN SCH ×4 (03:19→20:36)
[2020-12-01] MEDS: PROPOFOL 100 ML IV PRN (03:37)
[2020-12-01 05:19] LABS: BASOPHILS % (AUTO) 1 % (0-1); EOSINOPHILS % (AUTO) 7 % (1-7); LYMPHOCYTES % (AUTO) 12 % (22-44); MEAN CORPUSCULAR HEMOGLOBIN 32.2 pg (27.0-34.8); MEAN CORPUSCULAR HGB CONC 33.1 g/dL (32.4-35.8); MEAN PLATELET VOLUME 8.4 fL (7.4-10.4); MONOCYTES % (AUTO) 8 % (2-9); NEUTROPHILS % (AUTO) 73 % (42-75); PLATELET COUNT 196 x10^3/uL (130-400); RED BLOOD COUNT 2.19 x10^6/uL (3.82-5.3)
[2020-12-01 05:32] LABS: ANION GAP 11 mmol/L (5-15); CALCIUM 7.9 mg/dL (8.5-10.1); CHLORIDE 97 mmol/L (98-107)
[2020-12-01 05:33] LABS: CREATININE 4.17 mg/dL (0.55-1.02)
[2020-12-01] MEDS: LEVOTHYROXINE 25 MCG TABLET PO SCH (05:34)
[2020-12-01] MEDS: ALBUMIN HUMAN 25% 100 ML IV PRN (08:30)
[2020-12-01] MEDS: PANTOPRAZOLE 40 MG IV IVPush SCH (08:57)
[2020-12-01] MEDS: CALCITRIOL 0.25 MCG CAPSULE PO SCH (08:58)
[2020-12-01] MEDS: IRON SUCROSE COMPLEX 100MG/5ML IV SCH (08:58)
[2020-12-01] MEDS: SODIUM CHLORIDE FLUSH 10ML SYR IVF SCH ×2 (08:58→20:35)
[2020-12-01] MEDS: MIDODRINE 5 MG TABLET PO SCH ×3 (08:58→20:36)
[2020-12-01] MEDS: ASPIRIN 81 MG TABLET EC PO SCH (08:59)
[2020-12-01] MEDS: SENNA/DOCUSATE TABLET PO SCH (08:59)
[2020-12-01] MEDS: AMIODARONE 200 MG TABLET PO SCH ×2 (08:59→20:36)
[2020-12-01] MEDS: CYANOCOBALAMIN 1,000 MCG TABLET PO SCH (08:59)
[2020-12-01] MEDS: INSULIN GLARGINE 100 UNITS/ML, PEN SQ-INSULIN SCH ×2 (09:03→20:37)
[2020-12-01 09:16] VITALS: BP 143/33
[2020-12-01 09:30] VITALS: BP 181/46
[2020-12-01 10:00] VITALS: BP 128/102
[2020-12-01] MEDS: LIDODERM 5% PATCH TD SCH (10:09)
[2020-12-01 11:00] VITALS: BP 140/36
[2020-12-01] MEDS: CEFTRIAXONE 1,000 MG in SODIUM CHLORIDE 0.9% 50 ML IVPB SCH (12:09)
[2020-12-01] MEDS: OXYcodone IR 5MG TABLET PO PRN ×2 (12:25→18:16)
[2020-12-01] MEDS ORDERED: DOPAMINE 400 MG in SODIUM CHLORIDE 0.9% 240 ML IV PRN (18:54)
[2020-12-01] MEDS ORDERED: FENTANYL PF 100 MCG/2ML ONE (19:31)
[2020-12-01] MEDS: FENTANYL PF 100 MCG/2ML IVPush PRN ×2 (19:38→23:28)
[2020-12-01] MEDS: ATORVASTATIN 20 MG TABLET PO SCH (20:36)
[2020-12-01] MEDS: LIDODERM REMOVE PATCH NOTE XX SCH (20:37)
[2020-12-02] MEDS: INSULIN LISPRO 100 UNITS/ML, PEN SQ-INSULIN SCH ×4 (03:17→20:24)
[2020-12-02 04:20] LABS: MEAN CORPUSCULAR HEMOGLOBIN 32.2 pg (27.0-34.8); MEAN CORPUSCULAR HGB CONC 32.9 g/dL (32.4-35.8); MEAN PLATELET VOLUME 8.4 fL (7.4-10.4); PLATELET COUNT 172 x10^3/uL (130-400); RED BLOOD COUNT 2.51 x10^6/uL (3.82-5.3); RED CELL DISTRIBUTION WIDTH 15.5 % (9.6-15.2)
[2020-12-02 04:30] LABS: ALANINE AMINOTRANSFERASE 52 U/L (12-78); ALBUMIN 2.6 g/dL (3.4-5.0); ANION GAP 9 mmol/L (5-15); CALCIUM 8.1 mg/dL (8.5-10.1); CHLORIDE 96 mmol/L (98-107)
[2020-12-02 04:33] LABS: ALKALINE PHOSPHATASE 109 U/L (45-117); BILIRUBIN,TOTAL 0.4 mg/dL (0.2-1.0); CREATININE 3.84 mg/dL (0.55-1.02); TOTAL PROTEIN 5.9 g/dL (6.4-8.2); TRIGLYCERIDES 135 mg/dL (50-200)
[2020-12-02] MEDS: LEVOTHYROXINE 25 MCG TABLET PO SCH (05:39)
[2020-12-02 05:46] LABS: BAND#(MANUAL) 0.77 x10^3/uL; BANDS%(MANUAL) 6 % (0-7); EOS#(MANUAL) 0.65 x10^3/uL (0.0-0.4); EOS% (MANUAL) 5 % (1-7); LYMPH#(MANUAL) 1.29 x10^3/uL (1-3.4); LYMPHS% (MANUAL) 10 % (22-44); METAMYELOCYTES# (MANUAL) 0.26 x10^3/uL (0-0); METAMYELOCYTES% (MANUAL) 2 % (0-1); MONOS#(MANUAL) 0.77 x10^3/uL (0.3-2.7); MONOS% (MANUAL) 6 % (2-9); MYELOCYTES# (MANUAL) 0.13 x10^3/uL (0-0); MYELOCYTES% (MANUAL) 1 % (0-0); SEG#(MANUAL) 9.03 x10^3/uL (1.8-6.8); SEGS% (MANUAL) 70 % (42-75)
[2020-12-02 05:47] LABS: ANISOCYTOSIS 1+; OVALOCYTES 1+; POLYCHROMASIA 1+
[2020-12-02 05:48] LABS: <PLATELET ESTIMATE> ADEQUATE; <PLT MORPHOLOGY> NORMAL PLT MORPH
[2020-12-02] MEDS: CYANOCOBALAMIN 1,000 MCG TABLET PO SCH (09:00)
[2020-12-02] MEDS: INSULIN GLARGINE 100 UNITS/ML, PEN SQ-INSULIN SCH ×2 (09:33→20:25)
[2020-12-02] MEDS: SENNA/DOCUSATE TABLET PO SCH (09:34)
[2020-12-02] MEDS: MIDODRINE 5 MG TABLET PO SCH ×3 (09:36→20:15)
[2020-12-02] MEDS: ASPIRIN 81 MG TABLET EC PO SCH (09:36)
[2020-12-02] MEDS: AMIODARONE 200 MG TABLET PO SCH ×2 (09:36→20:16)
[2020-12-02] MEDS: SODIUM CHLORIDE FLUSH 10ML SYR IVF SCH ×2 (09:36→20:16)
[2020-12-02] MEDS: CALCITRIOL 0.25 MCG CAPSULE PO SCH (09:36)
[2020-12-02] MEDS: PANTOPRAZOLE 40 MG IV IVPush SCH ×2 (09:36→20:16)
[2020-12-02] MEDS: LIDODERM 5% PATCH TD SCH (09:41)
[2020-12-02] MEDS: CEFTRIAXONE 1,000 MG in SODIUM CHLORIDE 0.9% 50 ML IVPB SCH (11:41)
--- NOTE | 2020-12-02 15:35 | NUR ---
TF recs updated: Vital HP at goal rate: 45 ml/hr (ON propofol) 60 ml/hr (OFF propofol) Addendum: 12/02/20 at [address] Amended: Links added.
[2020-12-02] MEDS: ALBUMIN HUMAN 25% 100 ML IV PRN (16:01)
[2020-12-02] MEDS: ATORVASTATIN 20 MG TABLET PO SCH (20:15)
[2020-12-02] MEDS: ACETAMINOPHEN 325 MG TABLET PO PRN (20:16)
[2020-12-02] MEDS: LIDODERM REMOVE PATCH NOTE XX SCH (22:00)
[2020-12-03] MEDS: INSULIN LISPRO 100 UNITS/ML, PEN SQ-INSULIN SCH ×5 (03:41→20:37)
[2020-12-03 04:36] LABS: BASOPHILS % (AUTO) 1 % (0-1); EOSINOPHILS % (AUTO) 5 % (1-7); LYMPHOCYTES % (AUTO) 12 % (22-44); MEAN CORPUSCULAR HEMOGLOBIN 32.5 pg (27.0-34.8); MEAN CORPUSCULAR HGB CONC 33.4 g/dL (32.4-35.8); MEAN PLATELET VOLUME 8.3 fL (7.4-10.4); MONOCYTES % (AUTO) 7 % (2-9); NEUTROPHILS % (AUTO) 75 % (42-75); PLATELET COUNT 175 x10^3/uL (130-400); RED BLOOD COUNT 2.46 x10^6/uL (3.82-5.3); RED CELL DISTRIBUTION WIDTH 15.5 % (9.6-15.2)
[2020-12-03 04:46] LABS: ALBUMIN 2.8 g/dL (3.4-5.0); ANION GAP 10 mmol/L (5-15); CALCIUM 8.2 mg/dL (8.5-10.1); CHLORIDE 96 mmol/L (98-107); CREATININE 3.53 mg/dL (0.55-1.02)
[2020-12-03] MEDS: LEVOTHYROXINE 25 MCG TABLET PO SCH (06:03)
[2020-12-03] MEDS: PANTOPRAZOLE 40 MG IV IVPush SCH (08:47)
[2020-12-03] MEDS: SODIUM CHLORIDE FLUSH 10ML SYR IVF SCH ×2 (08:47→20:35)
[2020-12-03] MEDS: ACETAMINOPHEN 325 MG TABLET PO PRN ×2 (08:48→20:42)
[2020-12-03] MEDS: CYANOCOBALAMIN 1,000 MCG TABLET PO SCH (08:48)
[2020-12-03] MEDS: ASPIRIN 81 MG TABLET EC PO SCH (08:48)
[2020-12-03] MEDS: AMIODARONE 200 MG TABLET PO SCH ×2 (08:49→20:34)
[2020-12-03] MEDS: MIDODRINE 5 MG TABLET PO SCH ×3 (08:49→21:00)
[2020-12-03] MEDS: CALCITRIOL 0.25 MCG CAPSULE PO SCH (08:49)
[2020-12-03] MEDS: SENNA/DOCUSATE TABLET PO SCH (08:49)
[2020-12-03] MEDS: ESCITALOPRAM 10MG TABLET PO SCH (08:49)
[2020-12-03] MEDS: LIDODERM 5% PATCH TD SCH (08:50)
[2020-12-03] MEDS: INSULIN GLARGINE 100 UNITS/ML, PEN SQ-INSULIN SCH ×2 (08:50→20:35)
[2020-12-03] MEDS: ALBUMIN HUMAN 25% 100 ML IV PRN ×3 (10:37→12:21)
[2020-12-03] MEDS ORDERED: ALBUMIN HUMAN 25% 100 ML IV PRN ×2 (11:00)
[2020-12-03] MEDS: OMEPRAZOLE/SOD. BICARB. PACKET NG SCH ×2 (11:55→22:14)
[2020-12-03] MEDS: HEPARIN 5,000 UNITS/ML, 1ML SQ SCH ×2 (11:55→22:14)
[2020-12-03] MEDS ORDERED: INSULIN LISPRO 100 UNITS/ML, PEN SQ-INSULIN SCH (16:00)
[2020-12-03] MEDS ORDERED: OMEPRAZOLE 20 MG CAPSULE.DR PO SCH (16:00)
[2020-12-03] MEDS: OXYcodone IR 5MG TABLET PO PRN (20:34)
[2020-12-03] MEDS: ATORVASTATIN 20 MG TABLET PO SCH (20:34)
[2020-12-03] MEDS: LIDODERM REMOVE PATCH NOTE XX SCH (22:00)
[2020-12-04] MEDS: INSULIN LISPRO 100 UNITS/ML, PEN SQ-INSULIN SCH ×8 (02:53→21:05)
[2020-12-04 04:16] LABS: BASOPHILS % (AUTO) 1 % (0-1); EOSINOPHILS % (AUTO) 5 % (1-7); LYMPHOCYTES % (AUTO) 12 % (22-44); MEAN CORPUSCULAR HEMOGLOBIN 32.2 pg (27.0-34.8); MEAN PLATELET VOLUME 8.5 fL (7.4-10.4); MONOCYTES % (AUTO) 8 % (2-9); NEUTROPHILS % (AUTO) 75 % (42-75); PLATELET COUNT 174 x10^3/uL (130-400); RED BLOOD COUNT 2.51 x10^6/uL (3.82-5.3); RED CELL DISTRIBUTION WIDTH 15.2 % (9.6-15.2)
[2020-12-04 04:30] LABS: ALBUMIN 3.4 g/dL (3.4-5.0); ANION GAP 11 mmol/L (5-15); CALCIUM 8.5 mg/dL (8.5-10.1); CHLORIDE 97 mmol/L (98-107); CREATININE 3.42 mg/dL (0.55-1.02)
[2020-12-04] MEDS: ACETAMINOPHEN 325 MG TABLET PO PRN (05:02)
[2020-12-04] MEDS: LEVOTHYROXINE 25 MCG TABLET PO SCH (05:03)
[2020-12-04] MEDS: SCOPOLAMINE PATCH, 1.5MG PATCH.TD72 TD SCH (08:56)
[2020-12-04] MEDS: SODIUM CHLORIDE FLUSH 10ML SYR IVF SCH ×2 (08:58→20:54)
[2020-12-04] MEDS: OMEPRAZOLE/SOD. BICARB. PACKET NG SCH ×2 (08:59→20:53)
[2020-12-04] MEDS: CYANOCOBALAMIN 1,000 MCG TABLET PO SCH (09:03)
[2020-12-04] MEDS: MIDODRINE 5 MG TABLET PO SCH (09:03)
[2020-12-04] MEDS: ESCITALOPRAM 10MG TABLET PO SCH (09:04)
[2020-12-04] MEDS: AMIODARONE 200 MG TABLET PO SCH ×2 (09:04→20:52)
[2020-12-04] MEDS: CALCITRIOL 0.25 MCG CAPSULE PO SCH (09:04)
[2020-12-04] MEDS: ASPIRIN 81 MG TABLET EC PO SCH (09:04)
[2020-12-04] MEDS: SENNA/DOCUSATE TABLET PO SCH (09:04)
[2020-12-04] MEDS: INSULIN GLARGINE 100 UNITS/ML, PEN SQ-INSULIN SCH ×2 (09:19→21:07)
[2020-12-04] MEDS: LIDODERM 5% PATCH TD SCH (10:18)
[2020-12-04] MEDS: HEPARIN 5,000 UNITS/ML, 1ML SQ SCH ×2 (10:18→22:10)
[2020-12-04] MEDS: ALBUMIN HUMAN 25% 100 ML IV PRN ×3 (20:25→21:50)
[2020-12-04] MEDS: ATORVASTATIN 20 MG TABLET PO SCH (20:53)
[2020-12-04] MEDS ORDERED: MIDODRINE 5 MG TABLET PO SCH (21:00)
[2020-12-04] MEDS: LIDODERM REMOVE PATCH NOTE XX SCH (22:13)
[2020-12-05] MEDS: OXYcodone IR 5MG TABLET PO PRN ×2 (00:55→19:37)
[2020-12-05] MEDS: INSULIN LISPRO 100 UNITS/ML, PEN SQ-INSULIN SCH ×8 (04:19→21:14)
[2020-12-05 04:37] LABS: BASOPHILS % (AUTO) 0 % (0-1); EOSINOPHILS % (AUTO) 5 % (1-7); LYMPHOCYTES % (AUTO) 10 % (22-44); MEAN CORPUSCULAR HEMOGLOBIN 32.3 pg (27.0-34.8); MEAN CORPUSCULAR HGB CONC 32.5 g/dL (32.4-35.8); MEAN PLATELET VOLUME 8.5 fL (7.4-10.4); MONOCYTES % (AUTO) 6 % (2-9); NEUTROPHILS % (AUTO) 79 % (42-75); PLATELET COUNT 156 x10^3/uL (130-400); RED BLOOD COUNT 2.41 x10^6/uL (3.82-5.3); RED CELL DISTRIBUTION WIDTH 15.6 % (9.6-15.2)
[2020-12-05 04:48] LABS: ALBUMIN 4.3 g/dL (3.4-5.0); ANION GAP 10 mmol/L (5-15); CALCIUM 8.9 mg/dL (8.5-10.1); CHLORIDE 96 mmol/L (98-107)
[2020-12-05 04:51] LABS: ALANINE AMINOTRANSFERASE 53 U/L (12-78); ALKALINE PHOSPHATASE 85 U/L (45-117); BILIRUBIN,TOTAL 0.7 mg/dL (0.2-1.0); CREATININE 2.93 mg/dL (0.55-1.02); TOTAL PROTEIN 7.4 g/dL (6.4-8.2); TRIGLYCERIDES 107 mg/dL (50-200)
[2020-12-05] MEDS: LEVOTHYROXINE 25 MCG TABLET PO SCH (06:49)
[2020-12-05] MEDS: SODIUM CHLORIDE FLUSH 10ML SYR IVF SCH ×2 (08:44→21:19)
[2020-12-05] MEDS: CALCITRIOL 0.25 MCG CAPSULE PO SCH (08:44)
[2020-12-05] MEDS: CYANOCOBALAMIN 1,000 MCG TABLET PO SCH (08:45)
[2020-12-05] MEDS: ESCITALOPRAM 10MG TABLET PO SCH (08:45)
[2020-12-05] MEDS: OMEPRAZOLE/SOD. BICARB. PACKET NG SCH ×2 (08:46→21:18)
[2020-12-05] MEDS: ASPIRIN 81 MG TABLET EC PO SCH (08:46)
[2020-12-05] MEDS: AMIODARONE 200 MG TABLET PO SCH ×2 (08:46→21:18)
[2020-12-05] MEDS: SENNA/DOCUSATE TABLET PO SCH (08:46)
[2020-12-05] MEDS: ACETAMINOPHEN 325 MG TABLET PO PRN (08:50)
[2020-12-05] MEDS: INSULIN GLARGINE 100 UNITS/ML, PEN SQ-INSULIN SCH ×2 (08:51→21:15)
[2020-12-05] MEDS: ONDANSETRON 2MG/ML, 2ML IV PRN ×2 (11:38→16:20)
[2020-12-05] MEDS: HEPARIN 5,000 UNITS/ML, 1ML SQ SCH ×2 (11:38→22:59)
[2020-12-05] MEDS: LIDODERM 5% PATCH TD SCH (11:39)
[2020-12-05] MEDS: DARBEPOETIN 100 MCG/ML SQ SCH (12:35)
[2020-12-05] MEDS: ALBUMIN HUMAN 25% 100 ML IV PRN ×2 (15:49→16:51)
[2020-12-05] MEDS: ATORVASTATIN 20 MG TABLET PO SCH (21:18)
[2020-12-05] MEDS: LIDODERM REMOVE PATCH NOTE XX SCH (22:59)
[2020-12-06] MEDS: OXYcodone IR 5MG TABLET PO PRN ×3 (00:43→19:41)
[2020-12-06] MEDS: INSULIN LISPRO 100 UNITS/ML, PEN SQ-INSULIN SCH ×8 (02:56→21:27)
[2020-12-06 04:38] LABS: BASOPHILS % (AUTO) 1 % (0-1); EOSINOPHILS % (AUTO) 6 % (1-7); LYMPHOCYTES % (AUTO) 13 % (22-44); MEAN CORPUSCULAR HEMOGLOBIN 32.9 pg (27.0-34.8); MEAN CORPUSCULAR HGB CONC 33.3 g/dL (32.4-35.8); MEAN PLATELET VOLUME 8.7 fL (7.4-10.4); MONOCYTES % (AUTO) 7 % (2-9); NEUTROPHILS % (AUTO) 74 % (42-75); PLATELET COUNT 160 x10^3/uL (130-400); RED BLOOD COUNT 2.39 x10^6/uL (3.82-5.3); RED CELL DISTRIBUTION WIDTH 15.7 % (9.6-15.2)
[2020-12-06 04:45] LABS: ANION GAP 7 mmol/L (5-15); CALCIUM 8.8 mg/dL (8.5-10.1); CHLORIDE 98 mmol/L (98-107); CREATININE 2.82 mg/dL (0.55-1.02)
[2020-12-06] MEDS: LEVOTHYROXINE 25 MCG TABLET PO SCH (05:59)
[2020-12-06] MEDS: ACETAMINOPHEN 325 MG TABLET PO PRN ×2 (08:44→19:40)
[2020-12-06] MEDS: ESCITALOPRAM 10MG TABLET PO SCH (08:44)
[2020-12-06] MEDS: AMIODARONE 200 MG TABLET PO SCH ×2 (08:44→21:21)
[2020-12-06] MEDS: CYANOCOBALAMIN 1,000 MCG TABLET PO SCH (08:45)
[2020-12-06] MEDS: SENNA/DOCUSATE TABLET PO SCH (08:45)
[2020-12-06] MEDS: ASPIRIN 81 MG TABLET CHEW NG SCH (08:46)
[2020-12-06] MEDS: OMEPRAZOLE/SOD. BICARB. PACKET NG SCH ×2 (08:46→21:20)
[2020-12-06] MEDS: CALCITRIOL 1 MCG/ML SOL NG SCH (08:51)
[2020-12-06] MEDS: INSULIN GLARGINE 100 UNITS/ML, PEN SQ-INSULIN SCH ×2 (08:51→21:21)
[2020-12-06] MEDS: HEPARIN 5,000 UNITS/ML, 1ML SQ SCH ×2 (11:11→22:42)
[2020-12-06] MEDS: LIDODERM 5% PATCH TD SCH (11:11)
[2020-12-06] MEDS: ONDANSETRON 2MG/ML, 2ML IV PRN (13:51)
[2020-12-06] MEDS: SODIUM CHLORIDE FLUSH 10ML SYR IVF SCH ×2 (13:51→21:21)
[2020-12-06] MEDS: ALBUMIN HUMAN 25% 100 ML IV PRN ×2 (14:43→14:44)
[2020-12-06] MEDS: MEROPENEM 500 MG in SODIUM CHLORIDE 0.9% 100 ML IV SCH (15:32)
[2020-12-06] MEDS: ATORVASTATIN 20 MG TABLET PO SCH (21:20)
[2020-12-06] MEDS: LIDODERM REMOVE PATCH NOTE XX SCH (22:34)
[2020-12-07] MEDS: MEROPENEM 500 MG in SODIUM CHLORIDE 0.9% 100 ML IV SCH ×2 (02:47→14:58)
[2020-12-07] MEDS: INSULIN LISPRO 100 UNITS/ML, PEN SQ-INSULIN SCH ×8 (02:48→21:00)
[2020-12-07 05:00] LABS: BASOPHILS % (AUTO) 1 % (0-1); EOSINOPHILS % (AUTO) 6 % (1-7); LYMPHOCYTES % (AUTO) 14 % (22-44); MEAN CORPUSCULAR HEMOGLOBIN 32.7 pg (27.0-34.8); MEAN CORPUSCULAR HGB CONC 32.7 g/dL (32.4-35.8); MEAN PLATELET VOLUME 8.6 fL (7.4-10.4); MONOCYTES % (AUTO) 8 % (2-9); NEUTROPHILS % (AUTO) 71 % (42-75); PLATELET COUNT 175 x10^3/uL (130-400); RED BLOOD COUNT 2.32 x10^6/uL (3.82-5.3); RED CELL DISTRIBUTION WIDTH 16.6 % (9.6-15.2)
[2020-12-07 05:07] LABS: ANION GAP 7 mmol/L (5-15); CALCIUM 8.9 mg/dL (8.5-10.1); CHLORIDE 96 mmol/L (98-107); CREATININE 2.84 mg/dL (0.55-1.02)
[2020-12-07] MEDS: LEVOTHYROXINE 25 MCG TABLET PO SCH (05:56)
[2020-12-07] MEDS: CYANOCOBALAMIN 1,000 MCG TABLET PO SCH (09:00)
[2020-12-07] MEDS: SODIUM CHLORIDE FLUSH 10ML SYR IVF SCH ×2 (09:00→21:14)
[2020-12-07] MEDS: SCOPOLAMINE PATCH, 1.5MG PATCH.TD72 TD SCH (09:32)
[2020-12-07] MEDS: CALCITRIOL 1 MCG/ML SOL NG SCH (09:32)
[2020-12-07] MEDS: SENNA/DOCUSATE TABLET PO SCH (09:32)
[2020-12-07] MEDS: AMIODARONE 200 MG TABLET PO SCH ×2 (09:33→21:15)
[2020-12-07] MEDS: ASPIRIN 81 MG TABLET CHEW NG SCH (09:33)
[2020-12-07] MEDS: ESCITALOPRAM 10MG TABLET PO SCH (09:34)
[2020-12-07] MEDS: PANTOPRAZOLE GRAN. PKT 40 MG NG SCH ×2 (09:36→21:15)
[2020-12-07] MEDS: HEPARIN 5,000 UNITS/ML, 1ML SQ SCH ×2 (10:12→21:16)
[2020-12-07] MEDS: LIDODERM 5% PATCH TD SCH (10:12)
[2020-12-07] MEDS ORDERED: INSULIN GLARGINE 100 UNITS/ML, PEN SQ-INSULIN SCH (21:00)
[2020-12-07] MEDS: OXYcodone IR 5MG TABLET PO PRN (21:15)
[2020-12-07] MEDS: ATORVASTATIN 20 MG TABLET PO SCH (21:15)
[2020-12-07] MEDS: LIDODERM REMOVE PATCH NOTE XX SCH (21:16)
[2020-12-08] MEDS: INSULIN LISPRO 100 UNITS/ML, PEN SQ-INSULIN SCH ×6 (03:00→21:51)
[2020-12-08] MEDS: MEROPENEM 500 MG in SODIUM CHLORIDE 0.9% 100 ML IV SCH ×2 (03:03→15:40)
[2020-12-08 04:26] LABS: BASOPHILS % (AUTO) 1 % (0-1); EOSINOPHILS % (AUTO) 7 % (1-7); LYMPHOCYTES % (AUTO) 18 % (22-44); MEAN CORPUSCULAR HEMOGLOBIN 32.9 pg (27.0-34.8); MEAN CORPUSCULAR HGB CONC 33.1 g/dL (32.4-35.8); MEAN PLATELET VOLUME 8.4 fL (7.4-10.4); MONOCYTES % (AUTO) 9 % (2-9); NEUTROPHILS % (AUTO) 65 % (42-75); PLATELET COUNT 201 x10^3/uL (130-400); RED BLOOD COUNT 2.37 x10^6/uL (3.82-5.3); RED CELL DISTRIBUTION WIDTH 15.9 % (9.6-15.2)
[2020-12-08 04:39] LABS: ANION GAP 11 mmol/L (5-15); CALCIUM 8.8 mg/dL (8.5-10.1); CHLORIDE 95 mmol/L (98-107); CREATININE 4.14 mg/dL (0.55-1.02); TRIGLYCERIDES 49 mg/dL (50-200)
[2020-12-08] MEDS: LEVOTHYROXINE 25 MCG TABLET PO SCH (05:30)
[2020-12-08] MEDS: CYANOCOBALAMIN 1,000 MCG TABLET PO SCH (09:00)
[2020-12-08] MEDS: CALCITRIOL 1 MCG/ML SOL NG SCH (09:00)
[2020-12-08] MEDS: ALBUMIN HUMAN 25% 100 ML IV PRN ×2 (09:30→10:35)
[2020-12-08] MEDS: ACETAMINOPHEN 325 MG TABLET PO PRN ×2 (09:37→21:28)
[2020-12-08] MEDS: ONDANSETRON 2MG/ML, 2ML IV PRN ×2 (09:37→19:36)
[2020-12-08] MEDS: ESCITALOPRAM 10MG TABLET PO SCH (09:38)
[2020-12-08] MEDS: PANTOPRAZOLE 40 MG IV IVPush SCH ×2 (09:38→21:27)
[2020-12-08] MEDS: SODIUM CHLORIDE FLUSH 10ML SYR IVF SCH ×2 (09:39→21:08)
[2020-12-08] MEDS: ASPIRIN 81 MG TABLET CHEW NG SCH (09:39)
[2020-12-08] MEDS: AMIODARONE 200 MG TABLET PO SCH ×2 (09:39→21:27)
[2020-12-08] MEDS: SENNA/DOCUSATE TABLET PO SCH (09:39)
[2020-12-08] MEDS: LIDODERM 5% PATCH TD SCH (10:00)
[2020-12-08] MEDS ORDERED: MIDODRINE 5 MG TABLET ONE (11:15)
[2020-12-08] MEDS: HEPARIN 5,000 UNITS/ML, 1ML SQ SCH ×2 (11:20→23:29)
[2020-12-08] MEDS ORDERED: ALBUTEROL/IPRATROPIUM 2.5MG/0.5MG, 3 ML NPPB PRN (16:00)
[2020-12-08] MEDS: ATORVASTATIN 20 MG TABLET PO SCH (21:28)
[2020-12-08] MEDS: INSULIN GLARGINE 100 UNITS/ML, PEN SQ-INSULIN SCH (21:52)
[2020-12-08] MEDS: LIDODERM REMOVE PATCH NOTE XX SCH (23:32)
[2020-12-09] MEDS: INSULIN LISPRO 100 UNITS/ML, PEN SQ-INSULIN SCH ×4 (03:00→20:56)
[2020-12-09] MEDS: MEROPENEM 500 MG in SODIUM CHLORIDE 0.9% 100 ML IV SCH ×2 (03:11→15:00)
[2020-12-09 04:33] LABS: BASOPHILS % (AUTO) 1 % (0-1); EOSINOPHILS % (AUTO) 5 % (1-7); LYMPHOCYTES % (AUTO) 13 % (22-44); MEAN CORPUSCULAR HEMOGLOBIN 32.9 pg (27.0-34.8); MEAN PLATELET VOLUME 8.2 fL (7.4-10.4); MONOCYTES % (AUTO) 8 % (2-9); NEUTROPHILS % (AUTO) 74 % (42-75); PLATELET COUNT 179 x10^3/uL (130-400); RED BLOOD COUNT 2.25 x10^6/uL (3.82-5.3)
[2020-12-09 04:37] LABS: ANION GAP 7 mmol/L (5-15); CALCIUM 8.8 mg/dL (8.5-10.1); CHLORIDE 97 mmol/L (98-107); CREATININE 3.38 mg/dL (0.55-1.02)
[2020-12-09] MEDS: LEVOTHYROXINE 25 MCG TABLET PO SCH (06:09)
[2020-12-09] MEDS: SODIUM CHLORIDE FLUSH 10ML SYR IVF SCH ×2 (08:13→20:42)
[2020-12-09] MEDS ORDERED: MIDODRINE 5 MG TABLET ONE (08:35)
[2020-12-09] MEDS: AMIODARONE 200 MG TABLET PO SCH ×2 (08:42→20:42)
[2020-12-09] MEDS: CALCITRIOL 1 MCG/ML SOL NG SCH (08:42)
[2020-12-09] MEDS: CYANOCOBALAMIN 1,000 MCG TABLET PO SCH (08:42)
[2020-12-09] MEDS: SENNA/DOCUSATE TABLET PO SCH (08:42)
[2020-12-09] MEDS: PANTOPRAZOLE 40 MG IV IVPush SCH ×2 (08:42→20:41)
[2020-12-09] MEDS: ESCITALOPRAM 10MG TABLET PO SCH (08:43)
[2020-12-09] MEDS: MIDODRINE 5 MG TABLET PO SCH ×3 (08:44→20:42)
[2020-12-09] MEDS: ASPIRIN 81 MG TABLET CHEW NG SCH (08:44)
[2020-12-09] MEDS: INSULIN GLARGINE 100 UNITS/ML, PEN SQ-INSULIN SCH ×2 (08:45→20:56)
[2020-12-09] MEDS: LIDODERM 5% PATCH TD SCH (10:00)
[2020-12-09] MEDS: ONDANSETRON 2MG/ML, 2ML IV PRN (10:30)
[2020-12-09] MEDS: HEPARIN 5,000 UNITS/ML, 1ML SQ SCH ×2 (10:31→23:20)
[2020-12-09] MEDS: ATORVASTATIN 20 MG TABLET PO SCH (20:42)
[2020-12-09] MEDS ORDERED: ZOLPIDEM 5MG TABLET PO ONE (21:00)
[2020-12-09] MEDS: LIDODERM REMOVE PATCH NOTE XX SCH (22:28)
[2020-12-10] MEDS: MEROPENEM 500 MG in SODIUM CHLORIDE 0.9% 100 ML IV SCH ×2 (02:55→15:42)
[2020-12-10] MEDS: INSULIN LISPRO 100 UNITS/ML, PEN SQ-INSULIN SCH ×4 (04:12→20:08)
[2020-12-10] MEDS: LEVOTHYROXINE 25 MCG TABLET PO SCH (06:09)
[2020-12-10] MEDS: ASPIRIN 81 MG TABLET CHEW NG SCH (09:18)
[2020-12-10] MEDS: AMIODARONE 200 MG TABLET PO SCH ×2 (09:18→21:03)
[2020-12-10] MEDS: SENNA/DOCUSATE TABLET PO SCH (09:18)
[2020-12-10] MEDS: MIDODRINE 5 MG TABLET PO SCH ×3 (09:18→21:03)
[2020-12-10] MEDS: CYANOCOBALAMIN 1,000 MCG TABLET PO SCH (09:18)
[2020-12-10] MEDS: ESCITALOPRAM 10MG TABLET PO SCH (09:18)
[2020-12-10] MEDS: SCOPOLAMINE PATCH, 1.5MG PATCH.TD72 TD SCH (09:18)
[2020-12-10] MEDS: PANTOPRAZOLE 40 MG IV IVPush SCH ×2 (09:19→21:02)
[2020-12-10] MEDS: SODIUM CHLORIDE FLUSH 10ML SYR IVF SCH ×2 (09:26→21:04)
[2020-12-10] MEDS: CALCITRIOL 1 MCG/ML SOL NG SCH (09:26)
[2020-12-10] MEDS: INSULIN GLARGINE 100 UNITS/ML, PEN SQ-INSULIN SCH ×2 (09:34→21:26)
[2020-12-10] MEDS: LIDODERM 5% PATCH TD SCH (12:00)
[2020-12-10] MEDS: HEPARIN 5,000 UNITS/ML, 1ML SQ SCH (12:00)
[2020-12-10 17:27] VITALS: BP 125/63
[2020-12-10] MEDS: ACETAMINOPHEN 325 MG TABLET PO PRN ×2 (17:41→21:31)
[2020-12-10 18:56] VITALS: BP 130/60
[2020-12-10 21:01] VITALS: BP 148/55
[2020-12-10] MEDS: ATORVASTATIN 20 MG TABLET PO SCH (21:03)
[2020-12-10] MEDS: LIDODERM REMOVE PATCH NOTE XX SCH (22:11)
[2020-12-11] VITALS (7 sets, daily range): BP systolic 82–138; BP diastolic 37–63
[2020-12-11] MEDS: HEPARIN 5,000 UNITS/ML, 1ML SQ SCH ×2 (00:11→12:38)
[2020-12-11] MEDS: MEROPENEM 500 MG in SODIUM CHLORIDE 0.9% 100 ML IV SCH ×2 (03:53→15:13)
[2020-12-11] MEDS: INSULIN LISPRO 100 UNITS/ML, PEN SQ-INSULIN SCH ×4 (03:56→21:18)
[2020-12-11 05:08] LABS: BASOPHILS % (AUTO) 1 % (0-1); EOSINOPHILS % (AUTO) 6 % (1-7); LYMPHOCYTES % (AUTO) 18 % (22-44); MEAN CORPUSCULAR HEMOGLOBIN 32.9 pg (27.0-34.8); MEAN CORPUSCULAR HGB CONC 33.2 g/dL (32.4-35.8); MEAN PLATELET VOLUME 8.6 fL (7.4-10.4); MONOCYTES % (AUTO) 10 % (2-9); NEUTROPHILS % (AUTO) 66 % (42-75); PLATELET COUNT 181 x10^3/uL (130-400); RED BLOOD COUNT 2.43 x10^6/uL (3.82-5.3); RED CELL DISTRIBUTION WIDTH 16.8 % (9.6-15.2)
[2020-12-11 05:22] LABS: CHLORIDE 97 mmol/L (98-107); CREATININE 4.11 mg/dL (0.55-1.02)
[2020-12-11 05:23] LABS: ANION GAP 7 mmol/L (5-15); CALCIUM 8.3 mg/dL (8.5-10.1)
[2020-12-11] MEDS: LEVOTHYROXINE 25 MCG TABLET PO SCH (06:15)
[2020-12-11] MEDS: SODIUM CHLORIDE FLUSH 10ML SYR IVF SCH ×2 (08:41→21:00)
[2020-12-11] MEDS: ASPIRIN 81 MG TABLET CHEW NG SCH (08:42)
[2020-12-11] MEDS: SENNA/DOCUSATE TABLET PO SCH (08:42)
[2020-12-11] MEDS: ESCITALOPRAM 10MG TABLET PO SCH (08:42)
[2020-12-11] MEDS: PANTOPRAZOLE 40 MG IV IVPush SCH ×2 (08:42→21:19)
[2020-12-11] MEDS: CYANOCOBALAMIN 1,000 MCG TABLET PO SCH (08:43)
[2020-12-11] MEDS: AMIODARONE 200 MG TABLET PO SCH (08:43)
[2020-12-11] MEDS: MIDODRINE 5 MG TABLET PO SCH ×3 (08:43→21:00)
[2020-12-11] MEDS: CALCITRIOL 1 MCG/ML SOL NG SCH (08:43)
[2020-12-11] MEDS: LIDODERM 5% PATCH TD SCH (08:59)
[2020-12-11] MEDS: INSULIN GLARGINE 100 UNITS/ML, PEN SQ-INSULIN SCH ×2 (09:02→21:18)
[2020-12-11] MEDS ORDERED: DARBEPOETIN 100 MCG/ML SQ SCH (16:13)
[2020-12-11] MEDS ORDERED: ATROPINE SYRINGE 0.1 MG/ML, 10ML IVPush PRN (16:30)
[2020-12-11] MEDS: ATORVASTATIN 20 MG TABLET PO SCH (21:20)
[2020-12-11] MEDS: LIDODERM REMOVE PATCH NOTE XX SCH (22:00)
[2020-12-12] MEDS: HEPARIN 5,000 UNITS/ML, 1ML SQ SCH ×3 (00:30→15:00)
[2020-12-12 00:45] VITALS: BP 98/63
[2020-12-12] MEDS: INSULIN LISPRO 100 UNITS/ML, PEN SQ-INSULIN SCH ×4 (03:00→21:24)
[2020-12-12] MEDS: MEROPENEM 500 MG in SODIUM CHLORIDE 0.9% 100 ML IV SCH ×2 (03:00→18:39)
[2020-12-12] MEDS: LEVOTHYROXINE 25 MCG TABLET PO SCH (06:00)
[2020-12-12 07:18] LABS: ANION GAP 10 mmol/L (5-15); CALCIUM 8.2 mg/dL (8.5-10.1); CHLORIDE 93 mmol/L (98-107); CREATININE 5.44 mg/dL (0.55-1.02)
[2020-12-12 07:30] VITALS: BP 114/58
[2020-12-12] MEDS: SODIUM CHLORIDE FLUSH 10ML SYR IVF SCH ×2 (11:20→21:00)
[2020-12-12] MEDS: INSULIN GLARGINE 100 UNITS/ML, PEN SQ-INSULIN SCH ×2 (11:21→21:00)
[2020-12-12] MEDS: CYANOCOBALAMIN 1,000 MCG TABLET PO SCH (12:45)
[2020-12-12] MEDS: CALCITRIOL 1 MCG/ML SOL NG SCH (12:45)
[2020-12-12] MEDS: SENNA/DOCUSATE TABLET PO SCH (12:46)
[2020-12-12] MEDS: MIDODRINE 5 MG TABLET PO SCH ×3 (12:46→23:00)
[2020-12-12] MEDS: ESCITALOPRAM 10MG TABLET PO SCH (12:46)
[2020-12-12] MEDS: ASPIRIN 81 MG TABLET CHEW NG SCH (12:47)
[2020-12-12 14:30] VITALS: BP 106/52
[2020-12-12] MEDS: ALBUMIN HUMAN 25% 100 ML IV PRN (16:46)
[2020-12-12 19:57] VITALS: BP 176/60
[2020-12-12 20:53] VITALS: BP 158/53
[2020-12-12] MEDS: ATORVASTATIN 20 MG TABLET PO SCH (21:16)
[2020-12-12 23:33] VITALS: BP 146/63
[2020-12-13] MEDS: INSULIN LISPRO 100 UNITS/ML, PEN SQ-INSULIN SCH ×4 (03:00→20:29)
[2020-12-13] MEDS: MEROPENEM 500 MG in SODIUM CHLORIDE 0.9% 100 ML IV SCH (05:48)
[2020-12-13] MEDS: LEVOTHYROXINE 25 MCG TABLET PO SCH (05:49)
[2020-12-13 05:57] LABS: ANION GAP 10 mmol/L (5-15); CALCIUM 8.5 mg/dL (8.5-10.1); CHLORIDE 95 mmol/L (98-107); CREATININE 3.95 mg/dL (0.55-1.02)
[2020-12-13 06:00] LABS: INTERNATIONAL NORMALIZED RATIO 1.11 (0.93-1.1); PROTHROMBIN TIME 11.8 Seconds (9.6-11.5)
[2020-12-13 07:03] VITALS: BP 146/67
[2020-12-13] MEDS: INSULIN GLARGINE 100 UNITS/ML, PEN SQ-INSULIN SCH ×2 (08:00→20:30)
[2020-12-13] MEDS: SODIUM CHLORIDE FLUSH 10ML SYR IVF SCH ×2 (08:18→20:30)
[2020-12-13] MEDS: ESCITALOPRAM 10MG TABLET PO SCH (08:19)
[2020-12-13] MEDS: ASPIRIN 81 MG TABLET CHEW NG SCH (08:19)
[2020-12-13] MEDS: CALCITRIOL 1 MCG/ML SOL NG SCH (08:19)
[2020-12-13] MEDS: CYANOCOBALAMIN 1,000 MCG TABLET PO SCH (08:20)
[2020-12-13] MEDS: MIDODRINE 5 MG TABLET PO SCH (08:21)
[2020-12-13] MEDS: SENNA/DOCUSATE TABLET PO SCH (08:22)
[2020-12-13] MEDS: HEPARIN 5,000 UNITS/ML, 1ML SQ SCH ×2 (11:18→23:14)
[2020-12-13 12:45] VITALS: BP 146/65
[2020-12-13] MEDS: ALBUMIN HUMAN 25% 100 ML IV PRN (16:43)
[2020-12-13] MEDS: ONDANSETRON 2MG/ML, 2ML IV PRN (17:01)
[2020-12-13] MEDS: ATORVASTATIN 20 MG TABLET PO SCH (20:28)
[2020-12-13 21:20] VITALS: BP 150/64
[2020-12-14] MEDS ORDERED: EPINEPHRINE SYRINGE 0.1 MG/ML, 10ML ONE ×2 (01:00→02:17)
[2020-12-14] MEDS: INSULIN LISPRO 100 UNITS/ML, PEN SQ-INSULIN SCH ×4 (01:59→22:42)
[2020-12-14] MEDS ORDERED: CODE BLUE RESPONSE XX ONE (02:00)
[2020-12-14 02:14] LABS: ANION GAP 12 mmol/L (5-15); CALCIUM 8.8 mg/dL (8.5-10.1); CHLORIDE 98 mmol/L (98-107); CREATININE 3.31 mg/dL (0.55-1.02)
[2020-12-14 05:56] LABS: BASOPHILS % (AUTO) 1 % (0-1); EOSINOPHILS % (AUTO) 1 % (1-7); LYMPHOCYTES % (AUTO) 7 % (22-44); MEAN CORPUSCULAR HEMOGLOBIN 32.6 pg (27.0-34.8); MEAN CORPUSCULAR HGB CONC 32.4 g/dL (32.4-35.8); MEAN PLATELET VOLUME 8.6 fL (7.4-10.4); MONOCYTES % (AUTO) 9 % (2-9); NEUTROPHILS % (AUTO) 82 % (42-75); PLATELET COUNT 221 x10^3/uL (130-400); RED BLOOD COUNT 2.55 x10^6/uL (3.82-5.3); RED CELL DISTRIBUTION WIDTH 17.2 % (9.6-15.2)
[2020-12-14] MEDS: LEVOTHYROXINE 25 MCG TABLET PO SCH (06:20)
[2020-12-14] MEDS: SODIUM CHLORIDE FLUSH 10ML SYR IVF SCH ×2 (08:00→21:51)
[2020-12-14] MEDS ORDERED: VANCOMYCIN 500 MG ONE (08:39)
[2020-12-14] MEDS ORDERED: FENTANYL PF 100 MCG/2ML ONE (08:39)
[2020-12-14] MEDS ORDERED: MIDAZOLAM 1 MG/ML, 5ML ONE (08:39)
[2020-12-14] MEDS ORDERED: LIDOCAINE 1%, 20ML ONE ×2 (08:40→09:43)
[2020-12-14] MEDS: INSULIN GLARGINE 100 UNITS/ML, PEN SQ-INSULIN SCH ×2 (09:00→21:50)
[2020-12-14] MEDS: HEPARIN 5,000 UNITS/ML, 1ML SQ SCH (10:56)
[2020-12-14] MEDS ORDERED: VANCOMYCIN 1,000 MG in SODIUM CHLORIDE 0.9% 100 ML IV ONE (21:15)
[2020-12-14] MEDS: SENNA/DOCUSATE TABLET PO SCH (21:49)
[2020-12-14] MEDS: ASPIRIN 81 MG TABLET CHEW NG SCH (21:49)
[2020-12-14] MEDS: ESCITALOPRAM 10MG TABLET PO SCH (21:50)
[2020-12-14] MEDS: ATORVASTATIN 20 MG TABLET PO SCH (21:50)
[2020-12-14] MEDS: CYANOCOBALAMIN 1,000 MCG TABLET PO SCH (21:50)
[2020-12-14] MEDS: CALCITRIOL 1 MCG/ML SOL NG SCH (22:17)
[2020-12-15 01:04] VITALS: BP 115/41
[2020-12-15] MEDS: INSULIN LISPRO 100 UNITS/ML, PEN SQ-INSULIN SCH ×4 (03:33→22:11)
[2020-12-15] MEDS: LEVOTHYROXINE 75 MCG TABLET PO SCH (06:06)
[2020-12-15] MEDS ORDERED: MIDAZOLAM 1 MG/ML, 5ML ONE (07:56)
[2020-12-15] MEDS ORDERED: FENTANYL PF 100 MCG/2ML ONE ×2 (07:56)
[2020-12-15] MEDS ORDERED: NALOXONE 1 MG/ML, 2ML ONE (07:56)
[2020-12-15] MEDS ORDERED: FLUMAZENIL 0.1 MG/1 ML, 5ML ONE (07:56)
[2020-12-15] MEDS ORDERED: LIDOCAINE 1%, 20ML ONE (07:58)
[2020-12-15 08:06] VITALS: BP 160/65
[2020-12-15] MEDS: CYANOCOBALAMIN 1,000 MCG TABLET PO SCH (09:00)
[2020-12-15] MEDS: INSULIN GLARGINE 100 UNITS/ML, PEN SQ-INSULIN SCH ×2 (09:00→22:13)
[2020-12-15] MEDS: ALBUMIN HUMAN 25% 100 ML IV PRN ×2 (10:42→11:40)
[2020-12-15] MEDS: SODIUM CHLORIDE FLUSH 10ML SYR IVF SCH ×2 (13:52→22:15)
[2020-12-15] MEDS: ASPIRIN 81 MG TABLET CHEW NG SCH (13:54)
[2020-12-15] MEDS: HEPARIN 5,000 UNITS/ML, 1ML SQ SCH (13:54)
[2020-12-15] MEDS: ESCITALOPRAM 10MG TABLET PO SCH (13:54)
[2020-12-15] MEDS: SENNA/DOCUSATE TABLET PO SCH (13:54)
[2020-12-15] MEDS: AMIODARONE 200 MG TABLET PO SCH (13:55)
[2020-12-15] MEDS: CALCITRIOL 1 MCG/ML SOL NG SCH (13:56)
[2020-12-15 14:11] VITALS: BP 128/59
[2020-12-15 18:37] VITALS: BP 146/68
[2020-12-15] MEDS: ATORVASTATIN 20 MG TABLET PO SCH (22:09)
[2020-12-16 01:04] VITALS: BP 148/65
[2020-12-16] MEDS: HEPARIN 5,000 UNITS/ML, 1ML SQ SCH ×2 (02:53→15:20)
[2020-12-16] MEDS: INSULIN LISPRO 100 UNITS/ML, PEN SQ-INSULIN SCH ×4 (03:00→21:22)
[2020-12-16] MEDS: LEVOTHYROXINE 75 MCG TABLET PO SCH (06:30)
[2020-12-16] MEDS: SENNA/DOCUSATE TABLET PO SCH (07:44)
[2020-12-16] MEDS: CALCITRIOL 1 MCG/ML SOL NG SCH (08:12)
[2020-12-16] MEDS: AMIODARONE 200 MG TABLET PO SCH (08:13)
[2020-12-16] MEDS: ESCITALOPRAM 10MG TABLET PO SCH (08:13)
[2020-12-16] MEDS: CYANOCOBALAMIN 1,000 MCG TABLET PO SCH (08:13)
[2020-12-16] MEDS: ASPIRIN 81 MG TABLET CHEW NG SCH (08:13)
[2020-12-16] MEDS: SODIUM CHLORIDE FLUSH 10ML SYR IVF SCH ×2 (08:24→21:05)
[2020-12-16] MEDS ORDERED: AMIODARONE 200 MG TABLET PO SCH (09:00)
[2020-12-16] MEDS: INSULIN GLARGINE 100 UNITS/ML, PEN SQ-INSULIN SCH ×2 (09:01→21:21)
[2020-12-16 09:54] LABS: BASOPHILS % (AUTO) 1 % (0-1); EOSINOPHILS % (AUTO) 7 % (1-7); LYMPHOCYTES % (AUTO) 21 % (22-44); MEAN CORPUSCULAR HGB CONC 32.7 g/dL (32.4-35.8); MONOCYTES % (AUTO) 9 % (2-9); NEUTROPHILS % (AUTO) 63 % (42-75); PLATELET COUNT 209 x10^3/uL (130-400); RED BLOOD COUNT 2.52 x10^6/uL (3.82-5.3); RED CELL DISTRIBUTION WIDTH 17.7 % (9.6-15.2)
[2020-12-16 09:55] VITALS: BP 148/56
[2020-12-16 10:30] LABS: ANION GAP 7 mmol/L (5-15); CALCIUM 8.8 mg/dL (8.5-10.1); CHLORIDE 98 mmol/L (98-107); CREATININE 4.04 mg/dL (0.55-1.02)
[2020-12-16] MEDS: ONDANSETRON 2MG/ML, 2ML IV PRN (12:00)
[2020-12-16] MEDS: ALBUMIN HUMAN 25% 100 ML IV PRN ×2 (12:15→12:58)
[2020-12-16 14:00] VITALS: BP 171/68
[2020-12-16 15:52] VITALS: BP 129/34
[2020-12-16 21:00] VITALS: BP 161/59
[2020-12-16] MEDS: ATORVASTATIN 20 MG TABLET PO SCH (21:05)
[2020-12-16] MEDS: METOPROLOL TARTRATE 100 MG TAB PO SCH (21:05)
[2020-12-17 00:24] VITALS: BP 117/50
[2020-12-17] MEDS: HEPARIN 5,000 UNITS/ML, 1ML SQ SCH ×2 (02:37→15:06)
[2020-12-17] MEDS: INSULIN LISPRO 100 UNITS/ML, PEN SQ-INSULIN SCH ×4 (02:41→21:24)
[2020-12-17] MEDS: LEVOTHYROXINE 75 MCG TABLET PO SCH (06:07)
[2020-12-17 07:27] VITALS: BP 144/63
[2020-12-17] MEDS: ESCITALOPRAM 10MG TABLET PO SCH (08:45)
[2020-12-17] MEDS: ASPIRIN 81 MG TABLET CHEW NG SCH (08:45)
[2020-12-17] MEDS: AMIODARONE 200 MG TABLET PO SCH (08:45)
[2020-12-17] MEDS: CYANOCOBALAMIN 1,000 MCG TABLET PO SCH (08:45)
[2020-12-17] MEDS: METOPROLOL TARTRATE 100 MG TAB PO SCH ×2 (08:45→21:06)
[2020-12-17] MEDS: SENNA/DOCUSATE TABLET PO SCH (08:46)
[2020-12-17] MEDS: CALCITRIOL 1 MCG/ML SOL NG SCH (08:53)
[2020-12-17] MEDS: SODIUM CHLORIDE FLUSH 10ML SYR IVF SCH ×2 (08:53→21:06)
[2020-12-17] MEDS: INSULIN GLARGINE 100 UNITS/ML, PEN SQ-INSULIN SCH ×2 (09:00→21:24)
[2020-12-17 12:32] VITALS: BP 156/68
[2020-12-17 20:54] VITALS: BP 122/50
[2020-12-17] MEDS: ATORVASTATIN 20 MG TABLET PO SCH (21:06)
[2020-12-17 23:37] VITALS: BP 131/57
[2020-12-18] MEDS: HEPARIN 5,000 UNITS/ML, 1ML SQ SCH ×2 (02:10→14:08)
[2020-12-18] MEDS: INSULIN LISPRO 100 UNITS/ML, PEN SQ-INSULIN SCH ×4 (03:00→21:29)
[2020-12-18 05:15] LABS: BASOPHILS % (AUTO) 1 % (0-1); EOSINOPHILS % (AUTO) 7 % (1-7); LYMPHOCYTES % (AUTO) 24 % (22-44); MEAN CORPUSCULAR HEMOGLOBIN 33.1 pg (27.0-34.8); MEAN CORPUSCULAR HGB CONC 32.6 g/dL (32.4-35.8); MEAN PLATELET VOLUME 8.5 fL (7.4-10.4); MONOCYTES % (AUTO) 9 % (2-9); NEUTROPHILS % (AUTO) 58 % (42-75); PLATELET COUNT 204 x10^3/uL (130-400); RED BLOOD COUNT 2.33 x10^6/uL (3.82-5.3); RED CELL DISTRIBUTION WIDTH 17.3 % (9.6-15.2)
[2020-12-18 05:22] LABS: ALBUMIN 3.8 g/dL (3.4-5.0); ANION GAP 4 mmol/L (5-15); CALCIUM 8.9 mg/dL (8.5-10.1); CHLORIDE 100 mmol/L (98-107)
[2020-12-18 05:24] LABS: CREATININE 4.52 mg/dL (0.55-1.02)
[2020-12-18] MEDS: LEVOTHYROXINE 75 MCG TABLET PO SCH (05:51)
[2020-12-18 07:12] VITALS: BP 141/86
[2020-12-18] MEDS ORDERED: DARBEPOETIN 100 MCG/ML SQ SCH (08:52)
[2020-12-18] MEDS: METOPROLOL TARTRATE 100 MG TAB PO SCH ×2 (08:55→21:29)
[2020-12-18] MEDS: AMIODARONE 200 MG TABLET PO SCH (08:55)
[2020-12-18] MEDS: CYANOCOBALAMIN 1,000 MCG TABLET PO SCH (08:56)
[2020-12-18] MEDS: SENNA/DOCUSATE TABLET PO SCH (08:56)
[2020-12-18] MEDS: ASPIRIN 81 MG TABLET CHEW NG SCH (08:56)
[2020-12-18] MEDS: ESCITALOPRAM 10MG TABLET PO SCH (08:57)
[2020-12-18] MEDS: INSULIN GLARGINE 100 UNITS/ML, PEN SQ-INSULIN SCH ×2 (08:57→21:30)
[2020-12-18] MEDS: SODIUM CHLORIDE FLUSH 10ML SYR IVF SCH ×2 (08:57→21:30)
[2020-12-18] MEDS: CALCITRIOL 1 MCG/ML SOL NG SCH (11:52)
[2020-12-18 12:35] VITALS: BP 117/70
[2020-12-18 20:00] VITALS: BP 131/57
[2020-12-18] MEDS: ATORVASTATIN 20 MG TABLET PO SCH (21:29)
[2020-12-19] MEDS: HEPARIN 5,000 UNITS/ML, 1ML SQ SCH ×2 (02:21→14:37)
[2020-12-19 02:25] VITALS: BP 151/75
[2020-12-19 02:30] VITALS: BP 115/61
[2020-12-19 05:51] LABS: BASOPHILS % (AUTO) 1 % (0-1); EOSINOPHILS % (AUTO) 7 % (1-7); LYMPHOCYTES % (AUTO) 22 % (22-44); MEAN CORPUSCULAR HEMOGLOBIN 32.7 pg (27.0-34.8); MEAN CORPUSCULAR HGB CONC 32.7 g/dL (32.4-35.8); MEAN PLATELET VOLUME 8.5 fL (7.4-10.4); MONOCYTES % (AUTO) 8 % (2-9); NEUTROPHILS % (AUTO) 61 % (42-75); PLATELET COUNT 199 x10^3/uL (130-400); RED CELL DISTRIBUTION WIDTH 17.4 % (9.6-15.2)
[2020-12-19 06:07] LABS: ALBUMIN 3.6 g/dL (3.4-5.0); ANION GAP 8 mmol/L (5-15); CALCIUM 8.5 mg/dL (8.5-10.1); CHLORIDE 99 mmol/L (98-107); CREATININE 5.77 mg/dL (0.55-1.02)
[2020-12-19] MEDS: LEVOTHYROXINE 75 MCG TABLET PO SCH (06:22)
[2020-12-19] MEDS: INSULIN LISPRO 100 UNITS/ML, PEN SQ-INSULIN SCH ×2 (07:00→11:00)
[2020-12-19 07:14] VITALS: BP 145/74
[2020-12-19 07:30] VITALS: BP 138/64
[2020-12-19] MEDS: METOPROLOL TARTRATE 100 MG TAB PO SCH ×2 (08:04→11:37)
[2020-12-19] MEDS: CYANOCOBALAMIN 1,000 MCG TABLET PO SCH (09:00)
[2020-12-19] MEDS: SENNA/DOCUSATE TABLET PO SCH (09:00)
[2020-12-19 11:35] VITALS: BP 163/72
[2020-12-19] MEDS: SODIUM CHLORIDE FLUSH 10ML SYR IVF SCH (11:36)
[2020-12-19] MEDS: AMIODARONE 200 MG TABLET PO SCH (11:37)
[2020-12-19] MEDS: ESCITALOPRAM 10MG TABLET PO SCH (11:37)
[2020-12-19] MEDS: ASPIRIN 81 MG TABLET CHEW NG SCH (11:37)
[2020-12-19] MEDS: CALCITRIOL 1 MCG/ML SOL NG SCH (11:37)
[2020-12-19] MEDS ORDERED: AMIO200T42 PO (14:31)
[2020-12-19] MEDS ORDERED: METO-99 PO (14:31)
[2020-12-19] MEDS ORDERED: INSU100I11 SQ-INSULIN (14:31)
[2020-12-19] MEDS ORDERED: ASPI-963 NG (14:31)
[2020-12-19] MEDS ORDERED: ATOR20TA37 PO (14:31)
[2020-12-19] MEDS ORDERED: LEVO75TA PO (14:31)
[2020-12-19] MEDS ORDERED: Cyanocobalamin PO (14:31)
[2020-12-19] MEDS ORDERED: ESCI10TA97 PO (14:31)
[2020-12-19 15:00] VITALS: BP 160/64
== END 2020-12-19 15:07 | DRG 242 ==
LOC: ED 20:13 → EDIP 21:58 → 5SO 23:48 → CCU 11-20 05:45 → 5SO 11-21 15:58 → CCU 11-23 06:01 → 4WST 12-10 17:22 → 5SO 12-11 17:05 → CCU 12-14 01:20 → 5SO 12-14 17:48
PROVIDERS: ADMIT Student in an Organized Health Care Education/Training Program; ATTEND Internal Medicine
PROC: 5A12012 Performance of Cardiac Output, Single, Manual (ICD-10-PCS; 2020-11-19)
PROC: 5A1935Z Respiratory Ventilation, Less than 24 Consecutive Hours (ICD-10-PCS; 2020-11-20)
PROC: 0BH17EZ Insertion of Endotracheal Airway into Trachea, Via Natural or Artificial Opening (ICD-10-PCS; 2020-11-20)
PROC: 0BH17EZ Insertion of Endotracheal Airway into Trachea, Via Natural or Artificial Opening (ICD-10-PCS; principal; 2020-11-23)
PROC: 4A023N7 Measurement of Cardiac Sampling and Pressure, Left Heart, Percutaneous Approach (ICD-10-PCS; 2020-11-23)
PROC: 5A1223Z Performance of Cardiac Pacing, Continuous (ICD-10-PCS; 2020-11-23)
PROC: B2111ZZ Fluoroscopy of Multiple Coronary Arteries using Low Osmolar Contrast (ICD-10-PCS; 2020-11-23)
PROC: 5A1955Z Respiratory Ventilation, Greater than 96 Consecutive Hours (ICD-10-PCS; 2020-11-23)
PROC: 02HV33Z Insertion of Infusion Device into Superior Vena Cava, Percutaneous Approach (ICD-10-PCS; 2020-11-23)
PROC: B548ZZA Ultrasonography of Superior Vena Cava, Guidance (ICD-10-PCS; 2020-11-23)
PROC: 5A1D70Z Performance of Urinary Filtration, Intermittent, Less than 6 Hours Per Day (ICD-10-PCS; 2020-11-23)
PROC: 0T9B70Z Drainage of Bladder with Drainage Device, Via Natural or Artificial Opening (ICD-10-PCS; 2020-11-23)
PROC: 30233N1 Transfusion of Nonautologous Red Blood Cells into Peripheral Vein, Percutaneous Approach (ICD-10-PCS; 2020-11-24)
PROC: 5A1D70Z Performance of Urinary Filtration, Intermittent, Less than 6 Hours Per Day (ICD-10-PCS; 2020-11-26)
PROC: 5A1D70Z Performance of Urinary Filtration, Intermittent, Less than 6 Hours Per Day (ICD-10-PCS; 2020-11-29)
PROC: 5A1D70Z Performance of Urinary Filtration, Intermittent, Less than 6 Hours Per Day (ICD-10-PCS; 2020-12-01)
PROC: 5A1D70Z Performance of Urinary Filtration, Intermittent, Less than 6 Hours Per Day (ICD-10-PCS; 2020-12-02)
PROC: 5A1D70Z Performance of Urinary Filtration, Intermittent, Less than 6 Hours Per Day (ICD-10-PCS; 2020-12-03)
PROC: 5A1D70Z Performance of Urinary Filtration, Intermittent, Less than 6 Hours Per Day (ICD-10-PCS; 2020-12-06)
PROC: 5A1D70Z Performance of Urinary Filtration, Intermittent, Less than 6 Hours Per Day (ICD-10-PCS; 2020-12-10)
PROC: 5A1D70Z Performance of Urinary Filtration, Intermittent, Less than 6 Hours Per Day (ICD-10-PCS; 2020-12-12)
PROC: 0JH606Z Insertion of Pacemaker, Dual Chamber into Chest Subcutaneous Tissue and Fascia, Open Approach (ICD-10-PCS; 2020-12-14)
PROC: 02HK3JZ Insertion of Pacemaker Lead into Right Ventricle, Percutaneous Approach (ICD-10-PCS; 2020-12-14)
PROC: 02H63JZ Insertion of Pacemaker Lead into Right Atrium, Percutaneous Approach (ICD-10-PCS; 2020-12-14)
PROC: 0JH63XZ Insertion of Tunneled Vascular Access Device into Chest Subcutaneous Tissue and Fascia, Percutaneous Approach (ICD-10-PCS; 2020-12-15)
PROC: 02H633Z Insertion of Infusion Device into Right Atrium, Percutaneous Approach (ICD-10-PCS; 2020-12-15)
PROC: B548ZZA Ultrasonography of Superior Vena Cava, Guidance (ICD-10-PCS; 2020-12-15)
PROC: 5A1D70Z Performance of Urinary Filtration, Intermittent, Less than 6 Hours Per Day (ICD-10-PCS; 2020-12-15)
PROC: 5A1D70Z Performance of Urinary Filtration, Intermittent, Less than 6 Hours Per Day (ICD-10-PCS; 2020-12-16)
PROC: 5A1D70Z Performance of Urinary Filtration, Intermittent, Less than 6 Hours Per Day (ICD-10-PCS; 2020-12-19)
DX: I13.2 Hypertensive heart and chronic kidney disease with heart failure and with stage 5 chronic kidney disease, or end stage renal disease (principal); J96.01 Acute respiratory failure with hypoxia; I46.2 Cardiac arrest due to underlying cardiac condition; N18.6 End stage renal disease; I50.33 Acute on chronic diastolic (congestive) heart failure; I21.A1 Myocardial infarction type 2; N17.9 Acute kidney failure, unspecified; Z68.41 Body mass index [BMI] 40.0-44.9, adult; E87.1 Hypo-osmolality and hyponatremia; I48.19 Other persistent atrial fibrillation; J98.11 Atelectasis; N25.81 Secondary hyperparathyroidism of renal origin; N39.0 Urinary tract infection, site not specified; R57.9 Shock, unspecified; Z99.11 Dependence on respirator [ventilator] status; E87.2 Acidosis; B96.20 Unspecified Escherichia coli [E. coli] as the cause of diseases classified elsewhere; D50.9 Iron deficiency anemia, unspecified; D63.1 Anemia in chronic kidney disease; E03.9 Hypothyroidism, unspecified; E11.22 Type 2 diabetes mellitus with diabetic chronic kidney disease; E11.65 Type 2 diabetes mellitus with hyperglycemia; E66.01 Morbid (severe) obesity due to excess calories; E78.5 Hyperlipidemia, unspecified; E83.52 Hypercalcemia; E87.5 Hyperkalemia; F32.9 Major depressive disorder, single episode, unspecified; G47.33 Obstructive sleep apnea (adult) (pediatric); I27.20 Pulmonary hypertension, unspecified; I49.5 Sick sinus syndrome; J44.9 Chronic obstructive pulmonary disease, unspecified; N25.0 Renal osteodystrophy; R13.10 Dysphagia, unspecified; Z96.642 Presence of left artificial hip joint; K21.9 Gastro-esophageal reflux disease without esophagitis; R74.01 Elevation of levels of liver transaminase levels; Z79.01 Long term (current) use of anticoagulants; Z79.899 Other long term (current) drug therapy; Z83.3 Family history of diabetes mellitus; Z99.2 Dependence on renal dialysis; Z99.3 Dependence on wheelchair; Z90.49 Acquired absence of other specified parts of digestive tract; Z88.0 Allergy status to penicillin; Z88.5 Allergy status to narcotic agent
CPT/HCPCS: 33208; 33210; 36415; 36556; 36558; 36600; 70450; 71045; 71250; 74018; 74230; 76770; 76937; 80047; 80048; 80053; 80069; 81001; 82306; 82310; 82330; 82533; 82728; 82803; 82962; 83036; 83540; 83550; 83605; 83735; 83880; 83970; 84100; 84145; 84439; 84443; 84478; 84484; 84550; 85014; 85018; 85025; 85520; 85610; 85730; 86480; 86705; 86706; 86850; 86900; 86923; 87040; 87070; 87077; 87081; 87086; 87186; 87205; 87340; 90935; 92950; 93005; 93306; 93454; 93880; 93990; 94002; 94003; 94640; 96360; 96361; 96372; 99156; 99157; C1769; C1779; C1785; C1892; C1894; G0378; J0461; J0583; J0696; J0881; J1265; J1644; J1756; J1815; J2185; J2250; J2405; J2550; J2704; J3010; J3370; J7060; J7613; J7644; P9047; Q0162; C1750; C1751; C9113; J0282; J0330; J1642; J1940; J2310; J3475; J7030; J7050; P9016; Q9967